=== PATIENT | male | born 1935 | race Caucasian/White ===

== ENCOUNTER 2016-11-09 10:20 | Emergency (ER) | payer MEDICARE, BC ==
[2016-11-09] MEDS ORDERED: ACETAMINOPHEN 325 MG TABLET PO STA (12:09)
[2016-11-09] MEDS ORDERED: ACETAMINOPHEN 325 MG TABLET PO ONE (12:12)
== END 2016-11-09 13:11 | disposition home or self-care (01) ==
DX: S61.012A Laceration without foreign body of left thumb without damage to nail, initial encounter (principal); S61.412A Laceration without foreign body of left hand, initial encounter; V48.0XXA Car driver injured in noncollision transport accident in nontraffic accident, initial encounter; Y92.414 Local residential or business street as the place of occurrence of the external cause; I10 Essential (primary) hypertension
CPT/HCPCS: 12002; 73140; 99283; A9270

== ENCOUNTER 2017-03-30 15:29 | Outpatient (CLI) | payer MEDICARE, BC ==
[2017-03-30] MEDS ORDERED: GADOBUTROL 7.5 MMOL/7.5 ML VIAL IVP ONE (17:59)
--- NOTE | 2017-03-30 18:40 | MRI Preliminary Report ---
Exam: MRI Shoulder LT W/O IMPRESSION: 1. Moderate osteoarthritis of the acromioclavicular joint with a joint effusion. 2. Tendinosis of supraspinatus and infraspinatus. 3. High-grade partial-thickness tear of the deep fibers of subscapularis, with mild atrophy. 4. Complete rupture of the long head of biceps with medial subluxation 5. 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 [facility] MUSCULOSKELETAL RADIOLOGY SECTION The call report notification system was initiated by Dr. Barney Raymond at 18:27 hrs on 03/30/17 . The above findings were discussed with provider Estiven by Dr. Barney Raymond at 18:38 hrs on . SITE ID: [id number]
--- NOTE | 2017-03-30 18:43 | MRI Preliminary Report ---
Exam: MRI Brain W/WO IMPRESSION: 1. No evidence of acute or subacute infarct, intracranial hemorrhage, mass, midline shift, hydrocepha stephy, or abnormal intracranial enhancement. 2. Moderate scattered T2/FLAIR hyperintense periventricular, deep, and subcortical white matter lesio ns within cerebral hemispheres bilaterally. 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 3. 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 [facility] The call report notification system was initiated by Dr. Rachael Reynolds at 18:37 hrs on 03/30/17. The above findings were discussed with provider Magi by Dr. Rachael Reynolds at 18:42 hrs on . SITE ID: [id number]
--- NOTE | 2017-03-30 18:46 | MRI Report ---
EXAM: MRI BRAIN WITHOUT AND WITH CONTRAST EXAM DATE: 03/30/2017 05:30 PM. CLINICAL HISTORY: FACIAL DROOP,L CHOKING, CANNOT LIFT L ARM. COMPARISON: MRI brain 07/15/2016 TECHNIQUE: Multiplanar, multisequence T1-weighted and fluid-sensitive MR sequences of the brain were performed. Sequences optimized for routine evaluation. Other: None. Without and with IV Contrast: Yes . 7.5 mL Gadavist FINDINGS: Brain Volume: Normal for age. Parenchyma/Dura: Again noted is a chronic infarct in the right posterior inferior cerebellar hemisphe re as evidenced by cystic encephalomalacia with surrounding gliosis. No masses, acute or subacute inf arcts, or hemorrhage. Moderate scattered T2/FLAIR hyperintense periventricular, deep, and subcortical white matter lesions within cerebral hemispheres bilaterally. No parenchymal microhemorrhages. No ab normal intracranial enhancement. Ventricles/Cisterns: Normal. No hydrocephalus. Sinuses: Mild mucosal thickening right maxillary sinus. The remaining paranasal sinuses are clear. Bones: Normal. Other: None. IMPRESSION: 1. No evidence of acute or subacute infarct, intracranial hemorrhage, mass, midline shift, hydrocepha stephy, or abnormal intracranial enhancement. 2. Moderate scattered T2/FLAIR hyperintense periventricular, deep, and subcortical white matter lesio ns within cerebral hemispheres bilaterally. 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 3. 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 [facility] The call report notification system was initiated by Dr. Rachael Reynolds at 18:37 hrs on 03/30/17. The above findings were discussed with provider Sow by Dr. Rachael Reynolds at 18:42 hrs on . Referring Provider Line: [phone] SITE ID: [id number]
--- NOTE | 2017-03-30 19:12 | MRI Report ---
EXAM: LEFT SHOULDER MRI WITHOUT CONTRAST EXAM DATE: 03/30/2017 05:18 PM. CLINICAL HISTORY: Facial droop, choking, unable to lift left arm. COMPARISON: None. TECHNIQUE: Multiplanar, multisequence T1-weighted and fluid-sensitive sequences of the shoulder witho ut contrast. Other: None. FINDINGS: Acromioclavicular Region: The acromion is type III. There is an acromioclavicular joint effusion with moderate osteoarthritis. There are inferiorly projecting osteophytes narrowing the subacromial space . There is a small bursal effusion. Glenohumeral Region: There is moderate thinning of the hyaline cartilage of the glenohumeral joint wi th subarticular sclerosis and cyst formation consistent with moderate osteoarthritis. There is superi or subluxation of the humeral head. Humeral head and glenoid osteophytes are noted. Bone Marrow: See above Labrum: There is generalized labral fraying consistent with osteoarthritis. Musculature/Rotator Cuff: There is marked thickening and moderately increased T1 and T2 signal in the supraspinatus tendon consistent with tendinosis. There are similar changes in the anterior fibers of infraspinatus. There is tendinosis and high-grade partial-thickness tearing of subscapularis mainly affecting the deep fibers. There is mild atrophy of subscapularis. Biceps Tendon: There is a complete rupture of the long head of biceps at its proximal attachment. The fibers are medially subluxed. Other: The subcutaneous tissues are unremarkable. IMPRESSION: 1. Moderate osteoarthritis of the acromioclavicular joint with a joint effusion. 2. Tendinosis of supraspinatus and infraspinatus. 3. High-grade partial-thickness tear of the deep fibers of subscapularis, with mild atrophy. 4. Complete rupture of the long head of biceps with medial subluxation. 5. 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 [facility] MUSCULOSKELETAL RADIOLOGY SECTION The call report notification system was initiated by Dr. Barney Raymond at 18:27 hrs on 03/30/17 . The above findings were discussed with provider Jean-Baptiste by Dr. Barney Raymond at 18:38 hrs on . Referring Provider Line: [phone] SITE ID: [id number]
== END 2017-03-30 15:30 | disposition home or self-care (01) ==
LOC: DI 15:29
PROVIDERS: ATTEND Nurse Practitioner Family
DX: I63.8 Other cerebral infarction (principal); M19.012 Primary osteoarthritis, left shoulder; S46.012A Strain of muscle(s) and tendon(s) of the rotator cuff of left shoulder, initial encounter; S46.112A Strain of muscle, fascia and tendon of long head of biceps, left arm, initial encounter
CPT/HCPCS: 70553; 73221; A9585

== ENCOUNTER 2017-05-28 11:52 | Emergency (ER) | payer MEDICARE, BC ==
[2017-05-28 11:59] VITALS: BP 130/78
[2017-05-28 13:10] LABS: BILIRUBIN,URINE NEGATIVE (NEGATIVE)
[2017-05-28 13:17] LABS: UA w/ MICROSCOPIC CHARGE YES; UR CULTURE IF IND INDICATED
[2017-05-28 13:18] LABS: WBC,URINE >25 /HPF (0-3)
[2017-05-28] MEDS ORDERED: CIPROFLOXACIN 250 MG TABLET PO STA (13:58)
--- NOTE | 2017-05-28 13:59 | ED Physician Documentation ---
History of Present Illness - Stated complaint Stated Complaint: MALE - Chief complaint Chief Complaint: General - History obtained from History obtained from: Patient - History of Present Illness Timing: Other (82-year-old gentleman with urinary frequency and gross hematuria since yesterday. He also has dysuria but no flank pain. No personal History of renal colic or prostate issues.) Review of Systems Constitutional: denies: Fever, Chills GI: denies: Abdominal Pain, Nausea, Vomiting : reports: Dysuria, Frequency PD PAST MEDICAL HISTORY - Past Medical History Cardiovascular: Hypertension - Past Surgical History Past Surgical History: Yes General: Appendectomy - Present Medications Home Medications: Ambulatory Orders Medication Instructions Recorded Confirmed Aspirin [Aspir 81] 81 mg PO DAILY 09/24/15 05/28/17 Sertraline HCl [Zoloft] 50 mg PO DAILY 09/24/15 05/28/17 Atorvastatin [Lipitor] 10 mg PO DAILY 05/28/17 05/28/17 Ciprofloxacin HCl [Cipro] 500 mg PO BID #14 tablet 05/28/17 Lisinopril [Zestril] 5 mg PO DAILY 05/28/17 05/28/17 - Allergies Allergies/Adverse Reactions: Allergies Allergy/AdvReac Type Severity Reaction Status Date / Time No Known Drug Allergies Allergy Verified 11/09/16 10:27 - Social History Does the pt smoke?: No Smoking Status: Never smoker Does the pt drink ETOH?: No Does the pt have substance abuse?: No - Immunizations Immunizations are current?: Yes - POLST Patient has POLST: No PD ED PE NORMAL - Vitals Vital signs reviewed: Yes - General General: Alert and oriented X 3, No acute distress - Abdomen Abdomen: Soft, Non tender - Rectal Rectal: Other (prostate NTTP) - Back Back: No CVA TTP, No spinal TTP - Neuro Neuro: Alert and oriented X 3, Normal speech - Psych Psych: Normal mood, Normal affect Results - Vitals Vitals: Vital Signs - 24 hr 05/28/17 11:56 Temperature 36.4 C L Heart Rate 72 Respiratory 18 Rate Blood Pressure 130/78 O2 Saturation 96 Oxygen O2 Source Room air - Labs Labs: Laboratory Tests 05/28/17 12:20 Urine Color BROWN Urine Clarity BLOODY Urine pH 6.0 Ur Specific [place] >=1.030 H Urine Protein >=300 Urine Glucose (UA) NEGATIVE Urine Ketones NEGATIVE Urine Occult Blood LARGE H Urine Nitrite POSITIVE H Urine Bilirubin NEGATIVE Urine Urobilinogen 1 (NORMAL) Ur Leukocyte Esterase TRACE H Urine RBC TNTC H Urine WBC >25 H Ur Squamous Epith Cells RARE Squamous Urine Bacteria Many H Ur Microscopic Review INDICATED Urine Culture Comments INDICATED Departure - Departure Disposition: 01 Home, Self Care Clinical Impression: Cystitis Condition: Good Record reviewed to determine appropriate education?: Yes Instructions: ED UTI Cystitis Male Prescriptions: Ciprofloxacin HCl [Cipro] 500 mg PO BID #14 tablet Comments: Call your doctor to arrange a follow-up appointment, make the next available appointment. In the interim, return anytime if worse or if new symptoms develop. We will culture your urine, the results should be done in 48-72 hours. If an antibiotic change is necessary we will call you. Return if worse in the meantime, especially if you develop increasing flank pain, fevers, or cannot keep down the medication.
[2017-05-28] MEDS ORDERED: CIPROFLOXACIN 250 MG TABLET PO ONE (14:07)
== END 2017-05-28 14:37 | disposition home or self-care (01) ==
LOC: ED 11:52
DX: N30.00 Acute cystitis without hematuria (principal); Z79.82 Long term (current) use of aspirin
CPT/HCPCS: 51798; 81001; 87086; 99283; A9270; 81003

== ENCOUNTER 2017-09-09 13:47 | Outpatient (CLI) | payer MEDICARE, BC ==
--- NOTE | 2017-09-09 22:12 | MRI Report ---
EXAM: MRI LUMBAR SPINE WITHOUT CONTRAST EXAM DATE: 09/09/2017 02:34 PM. CLINICAL HISTORY: Leg pain with prolonged standing or walking. Rule out spinal stenosis. COMPARISON: None. TECHNIQUE: Multiplanar, multisequence T1-weighted and fluid-sensitive sequences of the lumbar spine f rom T12 to S1 without contrast. Other: None. FINDINGS: There is straightening of the normal lumbar lordosis. The anterior to posterior dimension of the lumb ar spinal canal is less than 15 mm consistent with a congenital stenosis. There is a mild degree of e pidural lipomatosis of the posterior epidural space from L1-L2 through L3-L4. There are multiple disk bulges or disk osteophyte complexes, which will be described in greater detai l below. There are Schmorl's nodes within the endplates from L1-L2 through L5-S1. There is a grade 1 anterolis thesis of L4 on L5. There are multiple disk bulges or disk osteophyte complexes, which will be descri bed in greater detail below. There is a mixture Modic type I and type II endplate degenerative change within the L1-L2 through L4-L5 endplates. There is minimal atrophy of the paraspinal musculature and psoas musculature. The abdominal aorta is of normal caliber. The kidneys are without evidence of hydronephrosis, but there is a large renal cyst of the interpolar region of the left kidney only partially in the provided field of view. Axial images: L1-L2: There is a small disk osteophyte complex abutting the sac producing a moderate central canal s tenosis. There is moderate bilateral facet arthropathy. There is moderate right and tcek-pa-[id number] left neural foraminal narrowing. L2-L3: There is a broad-based disk osteophyte complex with a right paracentral extrusion of the disk producing a severe central canal stenosis with probable entrapment of the traversing right L3 nerve r oot. Recommend correlation for right L3 radiculopathy. There is mild left and [id number]-[id number] right facet arthropathy. There is moderate right and mild to moderate left foraminal stenosis. L3-L4: There is a small disk osteophyte complex abutting the sac. There is mild hypertrophy of the fa t in the posterior epidural space. There is a moderate central canal stenosis. There is a mild degree of bilateral facet arthropathy. There is mild to moderate right and moderate left neural foraminal n arrowing. L4-L5: There is a grade 1 anterolisthesis of L4 on L5. There is a small disk osteophyte complex abutt ing the sac. There is a moderate central canal stenosis. There is moderate to severe bilateral facet arthropathy. There is mild to moderate right and moderate left neural foraminal narrowing. There is a small left-sided synovial cyst. L5-S1: There is a small disk osteophyte complex abutting the sac producing a minimal central canal st enosis. There is mild to moderate left facet arthropathy. There is mild right and left neural foramin al narrowing. IMPRESSION: 1. There is a small disk osteophyte complex abutting the sac producing a moderate central canal steno sis at L1-L2. 2. There is a broad-based disk osteophyte complex and L2-L3 with a superimposed right paracentral ext rusion of the disk producing a severe central canal stenosis with probable entrapment of the traversi ng right L3 nerve root. Recommend correlation for right L3 radiculopathy. 3. There is a small disk osteophyte complex at L3-L4 producing a moderate central canal stenosis in c ombination with mild epidural lipomatosis. 4. 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 5. There is a small disk is abutting the sac at L4-L5. There is a moderate central canal stenosis. Th ere is moderate to severe bilateral facet arthropathy. 6. There is a small disk osteophyte complex at L5-S1 producing a minimal central canal stenosis. Comment: The following findings are so common in adults without low back pain that while we report th eir presence, they must be interpreted with caution and in the context of the clinical situation. (Re lizzy Covington et al, Spine 2001) Prevalence of findings in patients without low back pain: Disk degeneration (any evidence): 92% Disk desiccation/T2 signal loss: 83% Disk height loss: 56% Disk bulge: 64% Disk protrusion: 32% Annular tear/high intensity zone: 38% [facility] Referring Provider Line: [phone] SITE ID: [id number]
== END 2017-09-09 13:48 | disposition home or self-care (01) ==
LOC: DI 13:47
PROVIDERS: ATTEND Nurse Practitioner
DX: M51.26 Other intervertebral disc displacement, lumbar region (principal); M51.36 Other intervertebral disc degeneration, lumbar region; M47.896 Other spondylosis, lumbar region; M43.16 Spondylolisthesis, lumbar region; M51.46 Schmorl's nodes, lumbar region
CPT/HCPCS: 72148

== ENCOUNTER 2019-02-09 16:08 | Outpatient (CLI) | payer MEDICARE, BC | END 2019-02-09 16:09 | disposition critical access hospital (66) | LOC: EMS 16:08 | PROVIDERS: ATTEND Surgery | DX: R07.81 Pleurodynia (principal); M54.5 Low back pain; W17.81XA Fall down embankment (hill), initial encounter; Y92.89 Other specified places as the place of occurrence of the external cause | CPT/HCPCS: A0425; A0427 ==

== ENCOUNTER 2019-02-09 16:34 | Emergency (ER) | payer MEDICARE, BC ==
[2019-02-09] MEDS ORDERED: SODIUM CHLORIDE 0.9% 1,000 ML IV ONE (16:43)
--- NOTE | 2019-02-09 16:45 | ED Physician Documentation ---
PD HPI MAJOR TRAUMA - Stated complaint Stated Complaint: FALL - Chief complaint Chief Complaint: Trauma Hd/Nk - History obtained from History obtained from: Patient - History of Present Illness Mechanism of injury: Fell (This is a relatively healthy 83-year-old gentleman who was sitting in a chair outside on a slope in the chair went over backwards and hit his head and back. He had severe back pain although he has hard time localizing it. He is not ambulated since the accident. Prior to arrival he received 150 mcg of fentanyl per EMS and declines further pain medication at this juncture. He had no loss of consciousness.) Review of Systems Ten Systems: 10 systems reviewed and negative Constitutional: reports: Reviewed and negative Cardiac: reports: Reviewed and negative Respiratory: reports: Reviewed and negative PD PAST MEDICAL HISTORY - Past Medical History Cardiovascular: Hypertension - Past Surgical History Past Surgical History: Yes General: Appendectomy - Present Medications Home Medications: Ambulatory Orders Medication Instructions Recorded Confirmed Aspirin [Aspir 81] 81 mg PO DAILY 09/24/15 05/28/17 Sertraline HCl [Zoloft] 50 mg PO DAILY 09/24/15 05/28/17 Atorvastatin [Lipitor] 10 mg PO DAILY 05/28/17 05/28/17 Ciprofloxacin HCl [Cipro] 500 mg PO BID #14 tablet 05/28/17 Lisinopril [Zestril] 5 mg PO DAILY 05/28/17 05/28/17 - Allergies Allergies/Adverse Reactions: Allergies Allergy/AdvReac Type Severity Reaction Status Date / Time No Known Drug Allergies Allergy Verified 11/09/16 10:27 - Social History Does the pt smoke?: No Smoking Status: Never smoker Does the pt drink ETOH?: No Does the pt have substance abuse?: No - Immunizations Immunizations are current?: Yes - POLST Patient has POLST: No PD ED PE NORMAL - Vitals Vital signs reviewed: Yes - General General: Alert and oriented X 3, No acute distress - HEENT HEENT: Other (Right pupil is smaller than the left, he is not aware of any pre- existing anisocoria but says he has been having trouble with his vision for a while.) - Neck Neck: Supple, no meningeal sign, No bony TTP - Cardiac Cardiac: RRR, No murmur - Respiratory Respiratory: No respiratory distress, Clear bilaterally - Abdomen Abdomen: Normal bowel sounds, Soft, Non tender - Back Back: No spinal TTP - Extremities Extremities: No deformity, No tenderness to palpate, No calf tenderness / cord - Neuro Neuro: Alert and oriented X 3, Normal speech - Psych Psych: Normal mood, Normal affect Results - Vitals Vitals: Vital Signs - 24 hr 02/09/19 02/09/19 16:39 19:03 Temperature 36.6 C Heart Rate 73 Respiratory 12 Rate Blood Pressure 162/98 H O2 Saturation 91 L Oxygen O2 Source Room air - Labs Labs: Laboratory Tests 02/09/19 02/09/19 02/09/19 18:47 18:47 18:47 WBC 10.0 RBC 4.28 L Hgb 14.0 Hct 41.8 L MCV 97.5 H MCH 32.7 H MCHC 33.5 RDW 13.4 Plt Count 163 MPV 7.8 Neut # (Auto) 6.4 Lymph # (Auto) 2.9 [place] # (Auto) 0.6 Eos # (Auto) 0.1 Baso # (Auto) 0.0 Absolute Nucleated RBC 0.01 Nucleated RBC % 0.1 PT 12.4 INR 1.1 Sodium 141 Potassium 3.8 Chloride 104 Carbon Dioxide 25 Anion Gap 12.0 BUN 20 Creatinine 0.7 Estimated GFR (MDRD) 108 Glucose 99 Calcium 9.0 Total Bilirubin 0.8 AST 23 ALT 25 Alkaline Phosphatase 71 Total Protein 7.0 Albumin 4.0 Globulin 3.0 Albumin/Globulin Ratio 1.3 Lipase 33 - Rads (name of study) CT Chest Radiology: EMP read contemporaneously (Nondisplaced fifth sixth and eighth rib fracture with 1/7 rib fracture that is displaced in [address] Head/C/T/L Spine Radiology: EMP read contemporaneously (Old right cerebellar infarct; degenerative changes in the neck causing spinal stenosis; Degenerative changes in the lumbar spine without spinal fractures.) PD MEDICAL DECISION MAKING - ED course ED course: This is an 83-year-old gentleman who presents by ambulance with severe left back pain after a fall, CT imaging of the spine, head, and chest demonstrate 4 rib fractures, 1 of which is displaced and fractured in 2 places. Arrangement was made to go to [facility] for higher level of trauma care given advanced age and multiple rib fractures and he was accepted there by Dr. Enma Alves at 7:05 PM. Cobras were completed. He is stable for transport to a higher level of care by ground. Departure - Departure Disposition: 02 Transfer Acute Care Hosp Clinical Impression: Multiple rib fractures Qualifiers: Encounter type: initial encounter Fracture type: closed Laterality: left Qualified Code(s): S22.42XA - Multiple fractures of ribs, left side, initial encounter for closed fracture Flail chest Qualifiers: Encounter type: initial encounter Fracture type: closed Qualified Code(s): S22.5XXA - Flail chest, initial encounter for closed fracture Condition: Stable
--- NOTE | 2019-02-09 17:46 | CT Report ---
Reason: L rib pain, fall Procedure Date: 02/09/2019 Accession Number: [id number] / [id number] Procedure: CT - CHEST WO CPT Code: FULL RESULT: EXAM: CT CHEST WITHOUT CONTRAST. EXAM DATE: 02/09/2019 05:25 PM. CLINICAL HISTORY: Fall, left rib pain. COMPARISONS: None. TECHNIQUE: Routine helical CT imaging was performed through the chest. IV contrast: None. Reconstructions: Coronal and sagittal. In accordance with CT protocol optimization, one or more of the following dose reduction techniques were utilized for this exam: automated exposure control, adjustment of mA and/or KV based on patient size, or use of iterative reconstructive technique. FINDINGS: Lungs/Pleura: Hypoventilatory opacities at the lung bases. No suspicious lung nodules or confluent consolidation. No pleural effusion or pneumothorax. Mediastinum: Normal heart size. No pericardial effusion. There are aortic and coronary artery calcifications. No aortic aneurysm. Bones: Nondisplaced posterior fifth and sixth rib fractures. The left posterior seventh rib is fractured in 2 places. There is also a minimally displaced eighth rib fracture. Visualized Abdomen: 6.6 cm left renal cyst. There are several hypodensities scattered throughout the liver most likely representing cyst. Other: None. IMPRESSION: 1. No acute pulmonary process. 2. Nondisplaced fifth, sixth and eighth rib fractures. The seventh rib is slightly displaced and fractured at 2 points. [facility]
--- NOTE | 2019-02-09 18:36 | CT Report ---
Reason: fall, head/back inj Procedure Date: 02/09/2019 Accession Number: [id number] / [id number] Procedure: CT - CERVICAL SPINE WO CPT Code: FULL RESULT: EXAM: CT CERVICAL SPINE WITHOUT CONTRAST DATE: 02/09/2019 05:25 PM. HISTORY: Fall, head/back injury. COMPARISONS: HEAD W/O 02/09/2019 5:10 PM. TECHNIQUE: Thin-section axial images were acquired of the cervical spine without contrast. Post-processing: Coronal and sagittal reformats. Other: None. In accordance with CT protocol optimization, one or more of the following dose reduction techniques were utilized for this exam: automated exposure control, adjustment of mA and/or KV based on patient size, or use of iterative reconstructive technique. FINDINGS: Alignment: No scoliosis or spondylolisthesis. Bones: No fractures. There is an odontoid process cyst. Interspace Levels/Facets: C1-C2: Unremarkable. C2-C3: Disk and facet joint related degenerative changes resulting in mild left neural foraminal stenosis. C3-C4: Degenerative bulging disk osteophyte complex and facet joint arthropathy resulting in moderate bilateral neural foraminal stenosis. C4-C5: There is 3 mm of C4 on C5 anterolisthesis. Degenerative bulging disk osteophyte complex and facet joint arthropathy resulting in moderate right and mild left neural foraminal stenosis. C5-C6: Degenerative bulging disk osteophyte complex resulting in moderate bilateral neural foraminal stenosis. C6-C7: Degenerative bulging disk osteophyte complex resulting in moderate bilateral neural foraminal stenosis. C7-T1: 4 mm of C7 on T1 anterolisthesis. There is degenerative disk bulging with associated moderate bilateral neural foraminal stenosis and mild central canal stenosis. Musculature: Normal. No fatty atrophy. Other: The paravertebral and prevertebral soft tissues are unremarkable. The lung apices are clear. IMPRESSION: 1. No cervical spine fracture. 2. Diffuse disk and facet joint related degenerative changes resulting in variable degrees of neural foraminal stenosis from C3-T1 as detailed above. [facility]
--- NOTE | 2019-02-09 18:53 | CT Report ---
Reason: fall, head/back inj Procedure Date: 02/09/2019 Accession Number: [id number] / [id number] Procedure: CT - HEAD WO CPT Code: FULL RESULT: EXAM: CT HEAD EXAM DATE: 02/09/2019 05:25 PM. CLINICAL HISTORY: Fall, head/back injury. COMPARISON: BRAIN W/WO 03/30/2017 5:30 PM. TECHNIQUE: Multiaxial CT images were obtained from the foramen magnum to the vertex. Reformats: Sagittal and coronal. IV contrast: None. In accordance with CT protocol optimization, one or more of the following dose reduction techniques were utilized for this exam: automated exposure control, adjustment of mA and/or KV based on patient size, or use of iterative reconstructive technique. FINDINGS: Parenchyma: No acute infarction or hemorrhage. Chronic inferior right cerebellar hemisphere encephalomalacia. Extraaxial Spaces: Normal for age. No subdural or epidural collections identified. Ventricles: Normal in size and position. Sinuses and Orbits: Imaged paranasal sinuses, orbits, and mastoids show no significant abnormality. Bones: No evidence of fracture or calvarial defect. Other: None. IMPRESSION: 1. No acute intracranial abnormality. 2. Chronic right inferior cerebellar infarction. [facility]
[2019-02-09 18:54] LABS: BASOPHILS % (AUTO) 0.2 %; EOSINOPHILS # (AUTO) 0.1 10^3/uL (0.0-0.7); EOSINOPHILS % (AUTO) 0.7 %; LYMPHOCYTES # (AUTO) 2.9 10^3/uL (1.5-3.5); LYMPHOCYTES % (AUTO) 28.7 %; MEAN CORPUSCULAR HEMOGLOBIN 32.7 pg (27.0-31.0); MEAN CORPUSCULAR HGB CONC 33.5 g/dL (32.0-36.0); MEAN CORPUSCULAR VOLUME 97.5 fL (80.0-94.0); MEAN PLATELET VOLUME 7.8 fL (7.4-11.4); MONOCYTES # (AUTO) 0.6 10^3/uL (0.0-1.0); MONOCYTES % (AUTO) 5.8 %; NEUTROPHILS # (AUTO) 6.4 10^3/uL (1.5-6.6); NEUTROPHILS % (AUTO) 64.6 %; PLT - PLATELET COUNT 163 10^3/uL (130-450); RED BLOOD COUNT 4.28 10^6/uL (4.70-6.10); RED CELL DISTRIBUTION WIDTH 13.4 % (12.0-15.0)
[2019-02-09 18:58] LABS: INR 1.1 (0.8-1.2); PT - PROTHROMBIN TIME 12.4 secs (9.9-12.6)
--- NOTE | 2019-02-09 18:58 | CT Report ---
Reason: fall, head/back inj Procedure Date: 02/09/2019 Accession Number: [id number] / [id number] Procedure: CT - LUMBAR SPINE WO CPT Code: FULL RESULT: EXAM: CT LUMBAR SPINE WITHOUT CONTRAST EXAM DATE: 02/09/2019 05:25 PM. CLINICAL HISTORY: Fall, head/back injury. COMPARISONS: None. TECHNIQUE: Thin-section axial images were acquired of the lumbar spine from T12 to S1 without contrast. Post-processing: Coronal and sagittal reformats. Other: None. In accordance with CT protocol optimization, one or more of the following dose reduction techniques were utilized for this exam: automated exposure control, adjustment of mA and/or KV based on patient size, or use of iterative reconstructive technique. FINDINGS: Alignment: No scoliosis or spondylolisthesis. Bones: Five [id number]-[id number] lumbar vertebral bodies are present. No fractures or bone lesions. Disk Levels/Facets: T12-L1: Unremarkable. L1-L2: Degenerative disk bulging with ligamentum flavum hypertrophy resulting in mild central canal and bilateral neural foraminal stenosis. L2-L3: Degenerative disk bulging and ligamentum flavum hypertrophy resulting in mild bilateral neural foraminal and central canal stenosis. L3-L4: Degenerative disk bulging and ligamentum flavum hypertrophy resulting in mild bilateral neural foraminal and central canal stenosis. L4-L5: There is 2 mm of L4 on L5 anterolisthesis. Degenerative disk bulging and facet joint arthropathy resulting in mild bilateral neural foraminal and central canal stenosis. L5-S1: Circumferential bulging disk resulting in mild bilateral neural foraminal narrowing left greater than right. Musculature: Normal. No fatty atrophy. Other: The visualized retroperitoneum is unremarkable. IMPRESSION: 1. No lumbar spine fracture. 2. Diffuse disk and facet joint related degenerative changes with ligamentum flavum hypertrophy resulting in mild neural foraminal and central canal narrowing as above. RADIA
--- NOTE | 2019-02-09 19:00 | CT Report ---
Reason: fall, head/back inj Procedure Date: 02/09/2019 Accession Number: [id number] / [id number] Procedure: CT - THORACIC SPINE WO CPT Code: FULL RESULT: EXAM: CT THORACIC SPINE WITHOUT CONTRAST EXAM DATE: 02/09/2019 05:25 PM. CLINICAL HISTORY: Fall, head/back injury. COMPARISONS: None. TECHNIQUE: Thin-section axial images were acquired of the thoracic spine from C7 to L1 without contrast. Post-processing: Coronal and sagittal reformats. Other: None. In accordance with CT protocol optimization, one or more of the following dose reduction techniques were utilized for this exam: automated exposure control, adjustment of mA and/or KV based on patient size, or use of iterative reconstructive technique. FINDINGS: Alignment: Right convexity midthoracic scoliosis. No spondylolisthesis. Bones: No fracture or bone lesion. Disk Levels/Facets: Diffuse age-related degenerative endplate spurring. Musculature: Normal. No fatty atrophy. Other: Left posterior fifth through eighth rib fractures. IMPRESSION: 1. No thoracic spine fracture. 2. Left fifth through eighth rib fractures. Please refer to chest CT report. RADIA
[2019-02-09 19:06] LABS: ALBUMIN/GLOBULIN RATIO 1.3 (1.0-2.2); BILIRUBIN,TOTAL 0.8 mg/dL (0.2-1.0); CREATININE 0.7 mg/dL (0.6-1.2)
[2019-02-09 19:45] VITALS: BP 192/100
== END 2019-02-09 20:37 | disposition short-term general hospital (02) ==
LOC: EDUNIT# → ED 16:34
DX: S22.42XA Multiple fractures of ribs, left side, initial encounter for closed fracture (principal); W07.XXXA Fall from chair, initial encounter; M54.9 Dorsalgia, unspecified; I10 Essential (primary) hypertension
CPT/HCPCS: 36415; 70450; 71250; 72125; 72128; 72131; 80053; 83690; 85025; 85610; 96360; 96361; 99283; 99284

== ENCOUNTER 2019-02-09 20:36 | Outpatient (CLI) | payer MEDICARE, BC | END 2019-02-09 20:37 | disposition short-term general hospital (02) | LOC: EMS 20:36 | PROVIDERS: ATTEND Surgery | DX: S22.49XA Multiple fractures of ribs, unspecified side, initial encounter for closed fracture (principal); W17.81XA Fall down embankment (hill), initial encounter | CPT/HCPCS: A0425; A0426 ==

== ENCOUNTER 2019-03-31 16:15 | Outpatient (CLI) | payer MEDICARE, BC ==
--- NOTE | 2019-04-01 11:52 | DEXA Report ---
Reason: OTHER SPECIFIED DISORDER OF BONE DENSITY AND STRUCTURE Procedure Date: 03/31/2019 Accession Number: [id number] / [id number] Procedure: DEX - Dexa Spine and/or Hip CPT Code: FULL RESULT: EXAM: Dexa Spine and/or Hip DATE: 03/31/2019 4:47 PM CLINICAL HISTORY: OTHER SPECIFIED DISORDER OF BONE DENSITY AND STRUCTURE TECHNIQUE: Dual energy x-ray absorptiometry (DXA) was performed on a 5by System. Regions measured are the AP Spine, femoral neck, and if needed forearm. COMPARISON: None. In accordance with the International Society for Clinical Densitometry (ISCD) guidelines, data from previous exams may be reanalyzed using current recommendations and techniques. This is done to allow a more accurate basis for comparison with the current study. FINDINGS: The data for the lumbar spine is as follows: BMD (g/cm/cm) T-SCORE Z-SCORE REGION L1 1.245 0.7 1.5 L2 1.442 1.7 2.4 L3 1.493 2.1 2.9 L4 1.393 1.3 2.0 TOTAL 1.398 1.5 2.2 NOTE: All evaluable vertebrae are used for classification The data for the hip is as follows: BMD (g/cm/cm) T-SCORE Z-SCORE REGION Neck 0.748 -2.5 -0.8 TOTAL 0.789 -2.2 -0.9 NOTE: The femoral neck or total proximal femur, whichever is lowest, is used for classification. IMPRESSION: THE WHO CLASSIFICATION BASED ON THE INTERNATIONAL REFERENCE STANDARD IS OSTEOPOROSIS. THE FRACTURE RISK IS HIGH. RECOMMENDATION: Patients with diagnosis of osteoporosis or osteopenia should have regular bone mineral density assessment. For those eligible for Medicare, routine testing is allowed once every 2 years. Testing frequency can be increased for patients who have rapidly progressing disease or for those who are receiving medical therapy to restore bone mass. COMMENT: World Health Organization (WHO) definitions for osteoporosis and osteopenia: NORMAL BMD: T-score at -1.0 or higher, fracture risk is low OSTEOPENIA BMD: T-score between -1.0 and -2.5, fracture risk is increased. OSTEOPOROSIS BMD: T-score at -2.5 or lower, fracture risk is high. National Osteoporosis Foundation recommends: 1. Obtain adequate dietary calcium (at least 1200 mg per day) and vitamin D (400-800 international units per day). 2. Participate, as appropriate, in regular weightbearing and muscle-strengthening exercise. 3. Avoid tobacco use and reduce alcohol and caffeine intake. 4. For more detailed information see the website at www.NOF.org.
== END 2019-03-31 16:16 | disposition home or self-care (01) ==
LOC: DI 16:15
PROVIDERS: ATTEND Registered Nurse
DX: M81.0 Age-related osteoporosis without current pathological fracture (principal)
CPT/HCPCS: 77080

== ENCOUNTER 2019-04-25 16:49 | Emergency (ER) | payer MEDICARE, BC ==
--- NOTE | 2019-04-25 17:44 | ED Physician Documentation ---
History of Present Illness - Stated complaint Stated Complaint: LUNG ISSUES - Chief complaint Chief Complaint: Neuro - History obtained from History obtained from: Patient, Family () - History of Present Illness Timing: Chronic (84-year-old gentleman who about 2-1/2 months ago had a fall with 4 rib fractures. I saw him at that time and sent him to [facility] where he spent about 2 weeks. He was managed nonoperatively. Subsequently spent a couple of weeks and assisted and has been home for a little over a month. For the last month or so he has had some exertional shortness of breath as well as dizzy episodes which he describes as lightheadedness where he asked to get down to the ground to keep passing out. He has had no syncopal episodes. Currently he denies shortness of breath. He went to the office today to discuss these complaints, and per his they were referred here because they did 2 EKGs and the EKG machine was "Minutizer.") Review of Systems Ten Systems: 10 systems reviewed and negative Constitutional: denies: Fever, Chills, Fatigue Throat: denies: Sore throat Cardiac: denies: Chest pain / pressure, Palpitations Respiratory: reports: Dyspnea. denies: Cough PD PAST MEDICAL HISTORY - Past Medical History Past Medical History: No Cardiovascular: Hypertension Respiratory: None Neuro: None Endocrine/Autoimmune: None GI: GERD : None HEENT: None Psych: None Musculoskeletal: None Derm: None - Past Surgical History Past Surgical History: Yes General: Appendectomy - Present Medications Home Medications: Ambulatory Orders Medication Instructions Recorded Confirmed Aspirin [Aspir 81] 81 mg PO DAILY 09/24/15 05/28/17 Sertraline HCl [Zoloft] 50 mg PO DAILY 09/24/15 05/28/17 Ciprofloxacin HCl [Cipro] 500 mg PO BID #14 tablet 05/28/17 RX: Atorvastatin [Lipitor] 10 mg PO DAILY 05/28/17 05/28/17 RX: Lisinopril [Zestril] 5 mg PO DAILY 05/28/17 05/28/17 - Allergies Allergies/Adverse Reactions: Allergies Allergy/AdvReac Type Severity Reaction Status Date / Time No Known Drug Allergies Allergy Verified 04/25/19 16:59 - Social History Does the pt smoke?: No Smoking Status: Never smoker Does the pt drink ETOH?: No Does the pt have substance abuse?: No - Immunizations Immunizations are current?: Yes - POLST Patient has POLST: No PD ED PE NORMAL - Vitals Vital signs reviewed: Yes - General General: Alert and oriented X 3, No acute distress - HEENT HEENT: PERRL, EOMI - Neck Neck: Supple, no meningeal sign, No bony TTP - Cardiac Cardiac: RRR, No murmur - Respiratory Respiratory: No respiratory distress, Other (mild diminished R base) - Abdomen Abdomen: Non tender - Back Back: No CVA TTP, No spinal TTP - Derm Derm: Normal color, Warm and dry - Extremities Extremities: No edema, No calf tenderness / cord - Neuro Neuro: Alert and oriented X 3, Normal speech Results - Vitals Vitals: Vital Signs - 24 hr 04/25/19 04/25/19 04/25/19 16:56 18:59 19:09 Temperature 36.7 C Heart Rate 70 66 64 Respiratory 18 18 17 Rate Blood Pressure 138/67 H 214/103 H 214/94 H O2 Saturation 100 95 93 Oxygen O2 Source Room air - EKG (time done) 1748 Rate: Rate (enter#) (63) Rhythm: NSR [place]: Normal Intervals: Prolonged NM QRS: Normal Ischemia: Non specific changes Computer interpretation: Agree with computer - Labs Labs: Laboratory Tests 04/25/19 04/25/19 04/25/19 17:46 17:46 17:46 WBC 8.5 RBC 3.84 L Hgb 12.6 L Hct 37.6 L MCV 97.9 H MCH 32.8 H MCHC 33.5 RDW 13.8 Plt Count 150 MPV 9.5 Neut # (Auto) 3.4 Lymph # (Auto) 4.4 H [place] # (Auto) 0.6 Eos # (Auto) 0.1 Baso # (Auto) 0.0 Absolute Nucleated RBC 0.00 Nucleated RBC % 0.0 D-Dimer Sodium 143 Potassium 3.6 Chloride 106 Carbon Dioxide 26 Anion Gap 11.0 BUN 21 H Creatinine 0.9 Estimated GFR (MDRD) 80 L Glucose 94 Calcium 9.2 Total Bilirubin 0.7 AST 20 ALT 22 Alkaline Phosphatase 83 Troponin I < 0.04 Total Protein 6.8 Albumin 4.0 Globulin 2.8 Albumin/Globulin Ratio 1.4 Lipase 32 04/25/19 17:46 WBC RBC Hgb Hct MCV MCH MCHC RDW Plt Count MPV Neut # (Auto) Lymph # (Auto) [place] # (Auto) Eos # (Auto) Baso # (Auto) Absolute Nucleated RBC Nucleated RBC % D-Dimer 219.7 Sodium Potassium Chloride Carbon Dioxide Anion Gap BUN Creatinine Estimated GFR (MDRD) Glucose Calcium Total Bilirubin AST ALT Alkaline Phosphatase Troponin I Total Protein Albumin Globulin Albumin/Globulin Ratio Lipase - Rads (name of study) 2v chest Radiology: EMP read contemporaneously (Mild bibasilar atelectasis or scarring) PD MEDICAL DECISION MAKING - ED course ED course: 84-year-old gentleman with some dyspnea and near syncopal episodes after a prolonged hospitalization. PE is considered but he is d-dimer was negative. And the remainder of his work-up was negative as well. His vital signs and exam are reassuring. Most likely cause is deconditioning from the hospitalization and and increased activity and consideration for physical therapy were advised. Departure - Departure Disposition: 01 Home, Self Care Clinical Impression: Pre-syncope, Physical deconditioning Condition: Good Record reviewed to determine appropriate education?: Yes Instructions: ED Near Syncope Unkn Comments: Your lab work and x-ray today look good. We checked for evidence of blood clots and heart disease and there was no evidence of either. I suspect your symptoms are due to a prolonged hospital stay and what is called deconditioning. Time and increasing physical activity will improve this. Talk with your doctor about physical therapy. Return for new worsening symptoms. Discharge Date/Time: 04/25/19 19:34
[2019-04-25 17:55] LABS: BASOPHILS % (AUTO) 0.4 %; EOSINOPHILS # (AUTO) 0.1 10^3/uL (0.0-0.7); EOSINOPHILS % (AUTO) 1.4 %; HGB - HEMOGLOBIN 12.6 g/dL (14.0-18.0); LYMPHOCYTES # (AUTO) 4.4 10^3/uL (1.5-3.5); LYMPHOCYTES % (AUTO) 50.9 %; MEAN CORPUSCULAR HEMOGLOBIN 32.8 pg (27.0-31.0); MEAN CORPUSCULAR HGB CONC 33.5 g/dL (32.0-36.0); MEAN CORPUSCULAR VOLUME 97.9 fL (80.0-94.0); MEAN PLATELET VOLUME 9.5 fL (7.4-11.4); MONOCYTES # (AUTO) 0.6 10^3/uL (0.0-1.0); MONOCYTES % (AUTO) 7.3 %; NEUTROPHILS # (AUTO) 3.4 10^3/uL (1.5-6.6); NEUTROPHILS % (AUTO) 39.8 %; PLT - PLATELET COUNT 150 10^3/uL (130-450); RED BLOOD COUNT 3.84 10^6/uL (4.70-6.10); RED CELL DISTRIBUTION WIDTH 13.8 % (12.0-15.0); WHITE BLOOD COUNT 8.5 x10^3/uL (4.8-10.8)
[2019-04-25 18:05] LABS: ALBUMIN/GLOBULIN RATIO 1.4 (1.0-2.2); BILIRUBIN,TOTAL 0.7 mg/dL (0.2-1.0); CALCIUM 9.2 mg/dL (8.5-10.3); CREATININE 0.9 mg/dL (0.6-1.2); TOTAL PROTEIN 6.8 g/dL (6.7-8.2)
--- NOTE | 2019-04-25 19:07 | XRAY Report ---
Reason: dyspnea Procedure Date: 04/25/2019 Accession Number: [id number] / [id number] Procedure: XR - Chest 2 View X-Ray CPT Code: 60460 FULL RESULT: EXAM: CHEST RADIOGRAPHY EXAM DATE: 04/25/2019 06:40 PM. CLINICAL HISTORY: Dyspnea. COMPARISON: CHEST W/O 02/09/2019 5:16 PM. TECHNIQUE: 2 views. FINDINGS: Lungs/Pleura: Mild chronic elevation of right hemidiaphragm. Streaky atelectasis versus scarring in posterior bases. No consolidation, effusion, or pneumothorax. Mediastinum: Mild cardiomegaly, unchanged. Upper lobe vessels not distended. Other: Osteopenia, scoliosis, multiple healing left rib fractures. IMPRESSION: Mild bibasilar atelectasis versus scarring. RADIA
[2019-04-25 19:10] VITALS: BP 214/94
== END 2019-04-25 19:34 | disposition home or self-care (01) ==
LOC: ED 16:49
DX: R55 Syncope and collapse (principal); I10 Essential (primary) hypertension
CPT/HCPCS: 71046; 80053; 83690; 84484; 85025; 85379; 93005; 99283; 99284

== ENCOUNTER 2019-04-28 06:44 | Day surgery (SDC) | payer MEDICARE, BC ==
[~2019-04-28 06:44] MED LIST: CYCLOPENTOLATE 1% OPHTH DROPS 2 ML ONE; KETOROLAC 0.45% OPHTH DROPS ONE; PHENYLEPHRINE 2.5% OPHTH 2 ML DROPS ONE; PROPARACAINE 0.5% OPHTH DROPS 15 ML ONE
[2019-04-28] MEDS ORDERED: LACTATED RINGERS 500 ML IV ONE (07:34)
[2019-04-28] MEDS ORDERED: BSS/LIDOCAINE/EPINEPHRINE 1 ML SYRINGE ONE (07:46)
[2019-04-28] MEDS ORDERED: TRIAMCIN/MOXIFLOX OPHTHALMIC 0.6 ML VIAL IO ONE ×2 (07:46→11:42)
[2019-04-28] MEDS ORDERED: TIMOLOL 0.5% OPHTH DROPS ONE (07:46)
[2019-04-28] MEDS ORDERED: BRIMONIDINE 0.2% OPHTH DROPS 5 ML ONE (07:46)
[2019-04-28] MEDS ORDERED: VANCOMYCIN OPHTHALMI 8MG/0.8ML 8 MG/0.8 ML SYRINGE IO ONE ×2 (07:46→11:42)
--- NOTE | 2019-04-28 08:49 | ANESTHESIA ---
Pre-Anesthesia VS, & Labs - Diagnosis left eye senile combined cataract - Procedure cataract extraction with intraocular lens implant left eye Vital Signs: Temp Pulse Resp BP Pulse Ox 36.2 C L 74 16 144/100 H 94 04/28/19 07:34 04/28/19 07:34 04/28/19 07:34 04/28/19 07:34 04/28/19 07:34 Height 5 ft 8 in Weight (kg) 80.9 kg Body Mass Index 26.1 - NPO >8 hours Home Medications and Allergies Home Medications: Ambulatory Orders Calcium Carbonate/Vitamin D3 [Calcium 600 + Vit D 400 Tablet] 1 each PO DAILY 04/27/19 Cyanocobalamin (Vitamin B-12) [Vitamin B-12] 1,000 mcg PO DAILY 04/27/19 Multivit-Min/FA/Lycopen/Lutein [Centrum Silver Men Tablet] 1 each PO DAILY 04/27/19 Tamsulosin HCl [Flomax] 0.4 mg PO DAILY 04/27/19 Aspirin [Aspir 81] 81 mg PO DAILY 09/24/15 Sertraline HCl [Zoloft] 50 mg PO DAILY 09/24/15 Atorvastatin [Lipitor] 10 mg PO DAILY 05/28/17 Calcium Carbonate/Vitamin D3 [Calcium 600 + Vit D 400 Tablet] 1 each PO DAILY 04/27/19 Cyanocobalamin (Vitamin B-12) [Vitamin B-12] 1,000 mcg PO DAILY 04/27/19 Multivit-Min/FA/Lycopen/Lutein [Centrum Silver Men Tablet] 1 each PO DAILY 04/27/19 Tamsulosin HCl [Flomax] 0.4 mg PO DAILY 04/27/19 Allergies/Adverse Reactions: Allergies Allergy/AdvReac Type Severity Reaction Status Date / Time No Known Drug Allergies Allergy Verified 04/25/19 16:59 Anes History & Medical History - Anesthetic History Anesthesia Complications: reports: No previous complications - Medical History Cardiovascular: reports: Hypertension Pulmonary: reports: None Gastrointestinal: reports: None Urinary: reports: None Neuro: reports: None Musculoskeletal: reports: Osteoarthritis, Gout, Chronic back pain Endocrine/Autoimmune: reports: None Blood Disorders: reports: None Skin: reports: None Smoking Status: Never smoker - Surgical History General: Appendectomy, Other (bilateral IHR) Exam General: Alert, Oriented x3, Cooperative, No acute distress Dental: Poor dentition Mouth Openin Fingerbreadth Neck Mobility: Normal Mallampati classification: II Thyromental Distance: greater than 6 cm Respiratory: Lungs clear, Normal breath sounds, No respiratory distress, No accessory muscle use Cardiovascular: Regular rate, Normal S1, Normal S2, No murmurs Mental/Cognitive Status: Alert/Oriented X3, Normal for patient Plan Anesthesia Type: MAC Consent for Procedure(s) Verified and Reviewed: Yes Code Status: Attempt Resuscitation ASA classification: 2-Mild systemic disease Is this case an emergency?: No
[2019-04-28] MEDS ORDERED: PHENYLEPHRINE 2.5% OPHTH 2 ML DROPS LEFTEYE ONE (09:25)
[2019-04-28] MEDS ORDERED: PROPARACAINE 0.5% OPHTH DROPS 15 ML LEFTEYE ONE (09:25)
[2019-04-28] MEDS ORDERED: CYCLOPENTOLATE 1% OPHTH DROPS 2 ML LEFTEYE ONE (09:25)
[2019-04-28] MEDS ORDERED: KETOROLAC 0.45% OPHTH DROPS LEFTEYE ONE (09:25)
[2019-04-28] MEDS ORDERED: fentaNYL 100 MCG/2 ML VIAL IVP ONE (11:00)
[2019-04-28] MEDS ORDERED: MIDAZOLAM 2 MG/2 ML VIAL IVP ONE (11:00)
[2019-04-28] MEDS ORDERED: EPINEPHrine 1 MG/ML AMP IVP ONE (11:41)
[2019-04-28] MEDS ORDERED: CHONDR SULF/HYALURONATE SYRINGE IO ONE (11:41)
[2019-04-28] MEDS ORDERED: BRIMONIDINE 0.2% OPHTH DROPS 5 ML OPTH ONE (11:41)
[2019-04-28] MEDS ORDERED: TIMOLOL 0.5% OPHTH DROPS OPTH ONE (11:41)
[2019-04-28] MEDS ORDERED: BSS/LIDOCAINE/EPINEPHRINE 1 ML SYRINGE IO ONE (11:42)
[2019-04-28 12:04] VITALS: BP 109/65
--- NOTE | 2019-04-28 12:10 | OPERATIVE REPORT ---
DATE OF SERVICE: 04/28/2019 Physician: Cristino Kothari MD PREOPERATIVE DIAGNOSIS: Visually significant cataract, left eye. This was his first cataract surger y. POSTOPERATIVE DIAGNOSIS: Visually significant cataract, left eye. This was his first cataract surge ry. DESCRIPTION OF PROCEDURE: Phacoemulsification with posterior chamber intraocular lens implant, left eye. SURGEON: Cristino Kothari MD ANESTHESIA: Monitored anesthesia care. COMPLICATIONS: None. OPERATIVE INDICATIONS: This is an 84-year-old man with progressive vision loss in the left eye due t o 4+ nuclear sclerotic cataract. Best corrected visual acuity was 20/30 with glare to 20/300 in the left eye. Indications for surgery are overall decrease in vision, difficulty seeing words on the com puter screen, difficulty reading, difficulty seeing words, closed captions and game scores on TV, dif ficulty seeing street signs, difficulty with glare and bright lights in any situation, and difficulty tracking a golf ball. He was consented at length concerning risks and benefits of cataract surgery, after which he expressed a desire to proceed with surgery. OPERATIVE PROCEDURE: The patient was taken to OR #3 and placed under monitored anesthesia care. A s urgical timeout was conducted confirming correct patient, correct procedure, and correct surgical sit e. He was given topical anesthesia and then prepped and draped in the usual sterile fashion. The ey e was entered at the 6 and 3 o'clock positions. Intracameral Shugarcaine was injected into the anter ior chamber, followed by Viscoat. A continuous-tear curvilinear capsulorrhexis was performed. Nucle us was hydrodissected and phacoemulsified. The cortex was evacuated using automated infusion and asp iration. Provisc was injected in the capsular bag, and a 24.5 diopter intraocular lens inserted in t he bag. Approximately 0.8 mL the mixture of triamcinolone, moxifloxacin, and vancomycin was injected subconjunctivally in the superior quadrant for infection and inflammation prophylaxis. I and A, was used to evacuate the viscoelastic material. The eye was inflated to physiologic pressure using rebecca nced salt solution and found to be watertight. The patient was taken from the operating room in good condition and given postoperative instructions. TD: 04/28/2019 11:45
== END 2019-04-28 06:45 | disposition home or self-care (01) ==
LOC: SDS 06:44
PROVIDERS: ATTEND Ophthalmology
PROC: 08RK3JZ Replacement of Left Lens with Synthetic Substitute, Percutaneous Approach (ICD-10-PCS; principal; 2019-04-28 08:30)
DX: H25.12 Age-related nuclear cataract, left eye (principal); N40.0 Benign prostatic hyperplasia without lower urinary tract symptoms; I10 Essential (primary) hypertension; F40.240 Claustrophobia; Z86.14 Personal history of Methicillin resistant Staphylococcus aureus infection; Z79.899 Other long term (current) drug therapy; Z86.73 Personal history of transient ischemic attack (TIA), and cerebral infarction without residual deficits; Z79.82 Long term (current) use of aspirin
CPT/HCPCS: 66984; 87640; A9270; J3490; V2632

== ENCOUNTER 2019-05-01 10:48 | Outpatient (CLI) | payer MEDICARE, BC | END 2019-05-01 10:49 | disposition critical access hospital (66) | LOC: EMS 10:48 | PROVIDERS: ATTEND Surgery | DX: R55 Syncope and collapse (principal); R53.1 Weakness; R42 Dizziness and giddiness | CPT/HCPCS: A0425; A0427 ==

== ENCOUNTER 2019-05-01 11:16 | Emergency (ER) | payer MEDICARE, BC ==
[2019-05-01 11:30] VITALS: BP 132/65
[2019-05-01 11:59] LABS: BASOPHILS % (AUTO) 0.3 %; EOSINOPHILS # (AUTO) 0.1 10^3/uL (0.0-0.7); EOSINOPHILS % (AUTO) 1.4 %; HGB - HEMOGLOBIN 13.4 g/dL (14.0-18.0); LYMPHOCYTES # (AUTO) 3.3 10^3/uL (1.5-3.5); MEAN CORPUSCULAR HEMOGLOBIN 34.3 pg (27.0-31.0); MEAN CORPUSCULAR HGB CONC 34.6 g/dL (32.0-36.0); MEAN PLATELET VOLUME 9.7 fL (7.4-11.4); MONOCYTES # (AUTO) 0.6 10^3/uL (0.0-1.0); MONOCYTES % (AUTO) 6.6 %; NEUTROPHILS # (AUTO) 5.1 10^3/uL (1.5-6.6); NEUTROPHILS % (AUTO) 55.4 %; PLT - PLATELET COUNT 170 10^3/uL (130-450); RED BLOOD COUNT 3.91 10^6/uL (4.70-6.10); RED CELL DISTRIBUTION WIDTH 13.7 % (12.0-15.0); WHITE BLOOD COUNT 9.1 x10^3/uL (4.8-10.8)
[2019-05-01 12:13] LABS: ALBUMIN/GLOBULIN RATIO 1.5 (1.0-2.2); BILIRUBIN,TOTAL 0.9 mg/dL (0.2-1.0); CALCIUM 9.3 mg/dL (8.5-10.3); TOTAL PROTEIN 6.7 g/dL (6.7-8.2)
--- NOTE | 2019-05-01 13:05 | ED Physician Documentation ---
PD HPI SYNCOPE - Stated complaint Stated Complaint: NEAR SYNCOPE - Chief complaint Chief Complaint: Neuro - History obtained from History obtained from: Patient - History of Present Illness Timing - onset: Today (Eating breakfast and felt dizzy and had to lay down. No chest pain or palpitations, no N/V. Per EMS had afib on the monitor.) PD PAST MEDICAL HISTORY - Past Medical History Past Medical History: Yes Cardiovascular: Hypertension Respiratory: None Neuro: None Endocrine/Autoimmune: None GI: None : None HEENT: Chronic vision loss Psych: None Musculoskeletal: Osteoarthritis, Gout, Chronic back pain Derm: None - Past Surgical History Past Surgical History: Yes General: Appendectomy, Other - Present Medications Home Medications: Ambulatory Orders Medication Instructions Recorded Confirmed Aspirin [Aspir 81] 81 mg PO DAILY 09/24/15 05/01/19 Sertraline HCl [Zoloft] 50 mg PO DAILY 09/24/15 05/01/19 Atorvastatin [Lipitor] 10 mg PO DAILY 05/28/17 05/01/19 Calcium Carbonate/Vitamin D3 1 each PO DAILY 04/27/19 05/01/19 [Calcium 600 + Vit D 400 Tablet] Cyanocobalamin (Vitamin B-12) 1,000 mcg PO DAILY 04/27/19 05/01/19 [Vitamin B-12] Multivit-Min/FA/Lycopen/Lutein 1 each PO DAILY 04/27/19 05/01/19 [Centrum Silver Men Tablet] Tamsulosin HCl [Flomax] 0.4 mg PO DAILY 04/27/19 05/01/19 - Allergies Allergies/Adverse Reactions: Allergies Allergy/AdvReac Type Severity Reaction Status Date / Time No Known Drug Allergies Allergy Verified 04/25/19 16:59 - Social History Does the pt smoke?: No Smoking Status: Never smoker Does the pt drink ETOH?: No Does the pt have substance abuse?: No - Immunizations Immunizations are current?: Yes - POLST Patient has POLST: No PD ED PE NORMAL - Vitals Vital signs reviewed: Yes - General General: Alert and oriented X 3, No acute distress - Cardiac Cardiac: RRR, No murmur - Respiratory Respiratory: No respiratory distress, Clear bilaterally - Abdomen Abdomen: Normal bowel sounds, Soft, Non tender - Back Back: No CVA TTP, No spinal TTP - Derm Derm: Normal color, Warm and dry - Neuro Neuro: Alert and oriented X 3, Normal speech - Psych Psych: Normal mood, Normal affect Results - Vitals Vitals: Vital Signs - 24 hr 05/01/19 05/01/19 11:18 11:29 Heart Rate 72 76 Respiratory 15 18 Rate Blood Pressure 117/72 132/65 H O2 Saturation 94 93 Oxygen O2 Source Room air - EKG (time done) 1123 Rate: Rate (enter#) (74) Rhythm: NSR (with PAC) [place]: Normal Intervals: Normal MS, Other (mild IVCD) QRS: Normal Ischemia: Non specific changes Computer interpretation: Agree with computer - Labs Labs: Laboratory Tests 05/01/19 05/01/19 11:54 11:54 WBC 9.1 RBC 3.91 L Hgb 13.4 L Hct 38.7 L MCV 99.0 H MCH 34.3 H MCHC 34.6 RDW 13.7 Plt Count 170 MPV 9.7 Neut # (Auto) 5.1 Lymph # (Auto) 3.3 [place] # (Auto) 0.6 Eos # (Auto) 0.1 Baso # (Auto) 0.0 Absolute Nucleated RBC 0.00 Nucleated RBC % 0.0 Sodium 142 Potassium 4.2 Chloride 106 Carbon Dioxide 25 Anion Gap 11.0 BUN 21 H Creatinine 1.0 Estimated GFR (MDRD) 71 L Glucose 129 H Calcium 9.3 Total Bilirubin 0.9 AST 16 ALT 20 Alkaline Phosphatase 73 Total Protein 6.7 Albumin 4.0 Globulin 2.7 Albumin/Globulin Ratio 1.5 Lipase 39 PD MEDICAL DECISION MAKING - ED course ED course: 84-year-old gentleman had a near syncopal episode today, no full syncope or injury. His evaluation today is unremarkable except for potential atrial fibrillation on the way here which is not present on our monitor. Departure - Departure Disposition: 01 Home, Self Care Clinical Impression: Near syncope Condition: Good Record reviewed to determine appropriate education?: Yes Health Concerns: near syncope, possible afib Plan of Treatment: f/u in office for echo / holter Comments: Call your physician tomorrow, follow-up in the office. I recommend you discuss with her an echocardiogram and Holter monitor given that the paramedics may have seen atrial fibrillation on the way here which is not present on our evaluation now. Return for new or worsening symptoms.
== END 2019-05-01 13:38 | disposition home or self-care (01) ==
LOC: ED 11:16
DX: R55 Syncope and collapse (principal); I49.1 Atrial premature depolarization; I45.89 Other specified conduction disorders; I10 Essential (primary) hypertension; Z79.82 Long term (current) use of aspirin
CPT/HCPCS: 36415; 80053; 83690; 85025; 93005; 99281; 99283

== ENCOUNTER 2019-05-26 09:18 | Outpatient (CLI) | payer MEDICARE, BC | END 2019-05-26 09:19 | disposition home or self-care (01) | LOC: DI 09:18 | PROVIDERS: ATTEND Nurse Practitioner Family | DX: R06.00 Dyspnea, unspecified (principal) | CPT/HCPCS: 93306 ==

== ENCOUNTER 2019-09-08 07:42 | Day surgery (SDC) | payer MEDICARE, BC ==
[2019-09-08] MEDS ORDERED: MIDAZOLAM 2 MG/2 ML VIAL IVP ONE (07:43)
[2019-09-08] MEDS ORDERED: PHENYLEPHRINE 2.5% OPHTH 2 ML DROPS RIGHTEYE ONE (07:55)
[2019-09-08] MEDS ORDERED: KETOROLAC 0.45% OPHTH DROPS RIGHTEYE ONE (07:55)
[2019-09-08] MEDS ORDERED: CYCLOPENTOLATE 1% OPHTH DROPS 2 ML RIGHTEYE ONE (07:55)
[2019-09-08] MEDS ORDERED: PROPARACAINE 0.5% OPHTH DROPS 15 ML RIGHTEYE ONE (07:55)
[2019-09-08] MEDS ORDERED: LACTATED RINGERS 1,000 ML IV ONE (08:00)
--- NOTE | 2019-09-08 08:40 | ANESTHESIA ---
Pre-Anesthesia VS, & Labs - Diagnosis Right eye senile combined cataract - Procedure right eye cataract extraction with IOL implant Vital Signs: Temp Pulse Resp BP Pulse Ox 36.5 C 74 16 110/80 94 09/08/19 08:00 09/08/19 08:00 09/08/19 08:00 09/08/19 08:00 09/08/19 08:00 Height 5 ft 7 in Weight (kg) 81.3 kg Body Mass Index 25.8 - NPO >8 hours Home Medications and Allergies Home Medications: Ambulatory Orders Donepezil HCl 10 mg PO DAILY 09/07/19 Aspirin [Aspir 81] 81 mg PO DAILY 09/24/15 Sertraline HCl [Zoloft] 50 mg PO DAILY 09/24/15 Atorvastatin [Lipitor] 10 mg PO DAILY 05/28/17 Calcium Carbonate/Vitamin D3 [Calcium 600 + Vit D 400 Tablet] 1 each PO DAILY 04/27/19 Cyanocobalamin (Vitamin B-12) [Vitamin B-12] 1,000 mcg PO DAILY 04/27/19 Multivit-Min/FA/Lycopen/Lutein [Centrum Silver Men Tablet] 1 each PO DAILY 04/27/19 Tamsulosin HCl [Flomax] 0.4 mg PO DAILY 04/27/19 Donepezil HCl 10 mg PO DAILY 09/07/19 Allergies/Adverse Reactions: Allergies Allergy/AdvReac Type Severity Reaction Status Date / Time No Known Drug Allergies Allergy Verified 04/25/19 16:59 Anes History & Medical History - Anesthetic History Anesthesia Complications: reports: No previous complications - Medical History Cardiovascular: reports: Hypertension Pulmonary: reports: None Gastrointestinal: reports: None Urinary: reports: None Neuro: reports: None Musculoskeletal: reports: Osteoarthritis, Gout, Chronic back pain Endocrine/Autoimmune: reports: None Blood Disorders: reports: None Skin: reports: None Smoking Status: Never smoker Psychosocial: reports: No issues indicated - Surgical History General: Appendectomy, Other Eyes Ears Nose Throat (EENT): Cataracts Exam General: Alert, Oriented x3, Cooperative, No acute distress Dental: WNL Mouth Openin Fingerbreadth Mallampati classification: III Thyromental Distance: greater than 6 cm Respiratory: Lungs clear, Normal breath sounds, No respiratory distress, No accessory muscle use Cardiovascular: Regular rate, Normal S1, Normal S2, No murmurs Mental/Cognitive Status: Alert/Oriented X3, Normal for patient Plan Anesthesia Type: MAC Consent for Procedure(s) Verified and Reviewed: Yes Code Status: Attempt Resuscitation ASA classification: 2-Mild systemic disease Is this case an emergency?: No
[2019-09-08] MEDS ORDERED: EPINEPHrine 1 MG/ML AMP IVP ONE (09:23)
[2019-09-08] MEDS ORDERED: BRIMONIDINE 0.2% OPHTH DROPS 5 ML OPTH ONE (09:23)
[2019-09-08] MEDS ORDERED: CHONDR SULF/HYALURONATE SYRINGE IO ONE (09:23)
[2019-09-08] MEDS ORDERED: TIMOLOL 0.5% OPHTH DROPS OPTH ONE (09:24)
[2019-09-08] MEDS ORDERED: VANCOMYCIN OPHTHALMI 8MG/0.8ML 8 MG/0.8 ML SYRINGE IO ONE (09:24)
[2019-09-08] MEDS ORDERED: TRIAMCIN/MOXIFLOX OPHTHALMIC 0.6 ML VIAL IO ONE (09:24)
[2019-09-08] MEDS ORDERED: BSS/LIDOCAINE/EPINEPHRINE 1 ML SYRINGE IO ONE (09:24)
[2019-09-08 09:53] VITALS: BP 151/62
--- NOTE | 2019-09-08 12:17 | OPERATIVE REPORT ---
DATE OF SERVICE: 09/08/2019 Physician: Cristino Kothari MD PREOPERATIVE DIAGNOSIS: Visually significant cataract, right eye. Cataract surgery was performed on the left eye on 28 April 2019. POSTOPERATIVE DIAGNOSIS: Visually significant cataract, right eye. Cataract surgery was performed on the left eye on 28 April 2019. PROCEDURE: Phacoemulsification with posterior chamber intraocular lens implant, right eye. SURGEON: Cristino Kothari MD ANESTHESIA: Monitored anesthesia care. COMPLICATIONS: None. OPERATIVE INDICATIONS: This is an 84-year-old man with progressive vision loss in the right eye due to 4+ nuclear sclerotic cataract. Best corrected visual acuity was 20/25, with glare to 20/400 in the right eye. Indications for surgery were overall decrease in vision, difficulty reading, difficulty seeing words, closed caption or game scores on TV, difficulty seeing street signs and difficulty with glare or bright lights in any situation. He was consented at length concerning risks and benefits of cataract surgery, after which he expressed a desire to proceed with surgery. OPERATIVE PROCEDURE: Patient was taken into OR #3 and placed under monitored anesthesia care. A surgical timeout was conducted confirming correct patient, correct procedure, and correct surgical site. He was given topical anesthesia, and prepped and draped in the usual sterile fashion. The eye was entered at the 12 and 9 o'clock positions. Intracameral Shugarcaine was injected into the anterior chamber, followed by Viscoat. A continuous-tear curvilinear capsulorrhexis was performed. The nucleus was hydrodissected and phacoemulsified. The cortex was evacuated using automated infusion and aspiration. Provisc was injected in the capsular bag, and a 24.0 diopter intraocular lens inserted in the bag. Approximately 0.25 mL of a mixture of triamcinolone, moxifloxacin was injected transsclerally into the vitreous. An additional 0.55 mL of a mixture of triamcinolone, moxifloxacin and vancomycin was injected subconjunctivally in the superior quadrant for infection and inflammation prophylaxis. I and A, was used to evacuate the viscoelastic materials. The eye was inflated to physiologic pressure using balanced salt solution and found to be watertight. Patient was taken from the operating room in good condition and given postoperative instructions. TD: 09/08/2019 09:45 [facility]
== END 2019-09-08 07:43 | disposition home or self-care (01) ==
LOC: SDS 07:42
PROVIDERS: ATTEND Ophthalmology
PROC: 08RJ3JZ Replacement of Right Lens with Synthetic Substitute, Percutaneous Approach (ICD-10-PCS; principal; 2019-09-08 09:00)
DX: H25.11 Age-related nuclear cataract, right eye (principal); N40.0 Benign prostatic hyperplasia without lower urinary tract symptoms; I10 Essential (primary) hypertension; Z79.899 Other long term (current) drug therapy; G31.83 Neurocognitive disorder with Lewy bodies; F02.80 Dementia in other diseases classified elsewhere, unspecified severity, without behavioral disturbance, psychotic disturbance, mood disturbance, and anxiety; Z79.82 Long term (current) use of aspirin; Z98.42 Cataract extraction status, left eye; Z87.891 Personal history of nicotine dependence
CPT/HCPCS: 66984; A9270; J3490; J7120; V2632

== ENCOUNTER 2019-10-26 13:40 | Outpatient (CLI) | payer MEDICARE, BC ==
--- NOTE | 2019-10-27 07:54 | XRAY Report ---
Reason: CLOSED FRACT OF MULT LT RIBS Procedure Date: 10/26/2019 Accession Number: [id number] / [id number] Procedure: XRS - Ribs w/PA Chest LT CPT Code: Final Report FULL RESULT: EXAM: LEFT RIB RADIOGRAPHY EXAM DATE: 10/26/2019 01:57 PM. CLINICAL HISTORY: CLOSED FRACT OF MULT LT RIBS. COMPARISON: CHEST 2 VIEW 04/25/2019 6:29 PM. TECHNIQUE: 1 view of the chest and 2 views of the ribs. FINDINGS: Bones: No acute left rib fracture. There are remote left fifth through seventh posterior lateral rib fractures. There are healing posterior left seventh and eighth rib fractures. Lungs: There is right costophrenic sulcus blunting. No lobar infiltrate. No pneumothorax. Mediastinum: Heart and mediastinal contours are unremarkable. Other: None. IMPRESSION: 1. No evidence of acute rib fracture. 2. There are nonacute posterior left seventh and eighth and posterior lateral fifth through seventh rib fractures. 3. No evidence of lobar infiltrate or pneumothorax. 4. Right costophrenic sulcus blunting is suspicious for small pleural effusion. RADIA
== END 2019-10-26 13:41 | disposition home or self-care (01) ==
LOC: DI.S 13:40
PROVIDERS: ATTEND Nurse Practitioner Family
DX: S22.42XD Multiple fractures of ribs, left side, subsequent encounter for fracture with routine healing (principal)

== ENCOUNTER 2020-05-03 14:03 | Outpatient (CLI) | payer MEDICARE, BC ==
[2020-05-03 14:57] LABS: ALBUMIN 4.3 g/dL (3.2-5.5); ALBUMIN/GLOBULIN RATIO 1.5 (1.0-2.2); ALKALINE PHOSPHATASE 64 IU/L (42-121); ALT ALANINE AMINOTRANSFERASE 26 IU/L (10-60); AST ASPARTATE AMINOTRANSFERASE 21 IU/L (10-42); BILIRUBIN,TOTAL 0.6 mg/dL (0.2-1.0); BUN - BLOOD UREA NITROGEN 22 mg/dL (6-20); CALCIUM 9.4 mg/dL (8.5-10.3); CARBON DIOXIDE - CO2 26 mmol/L (21-32); CHLORIDE 104 mmol/L (101-111); CHOL/HDL RATIO 3.6 (<5.0); CHOLESTEROL 152 mg/dL; CREATININE 0.8 mg/dL (0.6-1.2); GLUCOSE 130 mg/dL (70-100); HDL CHOLESTEROL 42 mg/dL; LDL CHOLESTEROL,CALCULATED 57 mg/dL; LDL/HDL RATIO 1.4 (<3.6); SODIUM 139 mmol/L (135-145); TOTAL PROTEIN 7.1 g/dL (6.7-8.2); VLDL CHOLESTEROL 53 mg/dL
== END 2020-05-03 14:04 | disposition home or self-care (01) ==
LOC: LAB 14:03
PROVIDERS: ATTEND Internal Medicine Cardiovascular Disease
DX: Z79.899 Other long term (current) drug therapy (principal)
CPT/HCPCS: 36415; 80053; 80061; 83721

== ENCOUNTER 2021-03-01 08:00 | Outpatient (CLI) | payer MEDICARE, BC ==
--- NOTE | 2021-03-01 16:02 | XRAY Report ---
PROCEDURE: Chest 2 View X-Ray INDICATIONS: DYSPNEA TECHNIQUE: 2 view(s) of the chest. COMPARISON: Chest x-ray 10/26/2019 FINDINGS: Surgical changes and devices: None. Lungs and pleura: No pleural effusions or pneumothorax. Lungs are clear. Mediastinum: Mediastinal contours are normal. Heart size is normal. Bones and chest wall: No suspicious bony abnormalities. Soft tissues appear unremarkable. IMPRESSION: No acute pulmonary process. Reviewed by: Brittanie Steiner MD on 03/01/2021 4:01 PM PDT Approved by: Brittanie Steiner MD on 03/01/2021 4:01 PM PDT Station ID: [id number]
== END 2021-03-01 23:59 | disposition home or self-care (01) ==
LOC: DI.S 08:00
PROVIDERS: ATTEND Physician Assistant
DX: R06.00 Dyspnea, unspecified (principal)

== ENCOUNTER 2021-03-01 14:19 | Outpatient (CLI) | payer MEDICARE, BC ==
[2021-03-01 21:02] LABS: BASOPHILS % (AUTO) 0.4 %; EOSINOPHILS # (AUTO) 0.1 10^3/uL (0.0-0.7); EOSINOPHILS % (AUTO) 1.1 %; HCT - HEMATOCRIT 42.3 % (42.0-52.0); HGB - HEMOGLOBIN 13.7 g/dL (14.0-18.0); LYMPHOCYTES # (AUTO) 3.3 10^3/uL (1.5-3.5); LYMPHOCYTES % (AUTO) 42.2 %; MEAN CORPUSCULAR HGB CONC 32.4 g/dL (32.0-36.0); MEAN CORPUSCULAR VOLUME 101.9 fL (80.0-94.0); MEAN PLATELET VOLUME 10.5 fL (7.4-11.4); MONOCYTES # (AUTO) 0.6 10^3/uL (0.0-1.0); NEUTROPHILS # (AUTO) 3.9 10^3/uL (1.5-6.6); NEUTROPHILS % (AUTO) 49.2 %; PLT - PLATELET COUNT 172 10^3/uL (130-450); RED BLOOD COUNT 4.15 10^6/uL (4.70-6.10); RED CELL DISTRIBUTION WIDTH 13.2 % (12.0-15.0); WHITE BLOOD COUNT 7.9 x10^3/uL (4.8-10.8)
[2021-03-01 21:11] LABS: ALBUMIN 4.3 g/dL (3.2-5.5); ALBUMIN/GLOBULIN RATIO 1.6 (1.0-2.2); BILIRUBIN,TOTAL 0.8 mg/dL (0.2-1.0); CALCIUM 9.6 mg/dL (8.5-10.3); CREATININE 0.9 mg/dL (0.6-1.2)
== END 2021-03-01 14:20 | disposition home or self-care (01) ==
LOC: LAB.S 14:19
PROVIDERS: ATTEND Physician Assistant
DX: R06.00 Dyspnea, unspecified (principal)
CPT/HCPCS: 36415; 80053; 85025

== ENCOUNTER 2021-03-08 14:15 | Outpatient (CLI) | payer MEDICARE, BC ==
[2021-03-08 20:19] LABS: BASOPHILS % (AUTO) 0.3 %; EOSINOPHILS # (AUTO) 0.1 10^3/uL (0.0-0.7); HCT - HEMATOCRIT 41.6 % (42.0-52.0); HGB - HEMOGLOBIN 13.6 g/dL (14.0-18.0); LYMPHOCYTES # (AUTO) 2.9 10^3/uL (1.5-3.5); LYMPHOCYTES % (AUTO) 37.4 %; MEAN CORPUSCULAR HEMOGLOBIN 33.3 pg (27.0-31.0); MEAN CORPUSCULAR HGB CONC 32.7 g/dL (32.0-36.0); MEAN PLATELET VOLUME 10.7 fL (7.4-11.4); MONOCYTES # (AUTO) 0.5 10^3/uL (0.0-1.0); MONOCYTES % (AUTO) 6.5 %; NEUTROPHILS # (AUTO) 4.3 10^3/uL (1.5-6.6); NEUTROPHILS % (AUTO) 54.7 %; PLT - PLATELET COUNT 170 10^3/uL (130-450); RED BLOOD COUNT 4.08 10^6/uL (4.70-6.10); RED CELL DISTRIBUTION WIDTH 13.1 % (12.0-15.0); WHITE BLOOD COUNT 7.8 x10^3/uL (4.8-10.8)
[2021-03-08 20:31] LABS: ALBUMIN 4.2 g/dL (3.2-5.5); ALBUMIN/GLOBULIN RATIO 1.6 (1.0-2.2); CALCIUM 9.6 mg/dL (8.5-10.3); CREATININE 1.1 mg/dL (0.6-1.2); TOTAL PROTEIN 6.9 g/dL (6.7-8.2)
[2021-03-08 20:38] LABS: % IRON SATURATION 24 % (20-50); IRON 89 ug/dL (45-182); TOTAL IRON BINDING CAPACITY 375 ug/dL (250-450); TRANSFERRIN 268 mg/dL (180-329)
[2021-03-08 20:55] LABS: FERRITIN 155.6 ng/mL (23.9-336.2)
== END 2021-03-08 14:16 | disposition home or self-care (01) ==
LOC: LAB.S 14:15
PROVIDERS: ATTEND Registered Nurse
DX: D53.9 Nutritional anemia, unspecified (principal); R06.09 Other forms of dyspnea
CPT/HCPCS: 36415; 80053; 82607; 82728; 83540; 83880; 84466; 85025

== ENCOUNTER 2021-05-01 08:55 | Outpatient (CLI) | payer MEDICARE, BC | END 2021-05-01 08:56 | disposition home or self-care (01) | LOC: DI 08:55 | PROVIDERS: ATTEND Internal Medicine Cardiovascular Disease | DX: R06.00 Dyspnea, unspecified (principal) | CPT/HCPCS: 93306 ==

== ENCOUNTER 2021-05-20 16:14 | Outpatient (CLI) | payer MEDICARE, BC ==
--- NOTE | 2021-05-21 09:40 | XRAY Report ---
PROCEDURE: Chest 2 View X-Ray INDICATIONS: Chest pain TECHNIQUE: 2 view(s) of the chest. COMPARISON: None. FINDINGS: Surgical changes and devices: None. Lungs and pleura: No pleural effusions or pneumothorax. Lungs are clear. Mediastinum: Mediastinal contours are normal. Heart size is normal. Bones and chest wall: No suspicious bony abnormalities. Soft tissues appear unremarkable. IMPRESSION: No acute cardiopulmonary process demonstrated radiographically. Reviewed by: Gary Suarez MD on 05/21/2021 9:39 AM PDT Approved by: Gary Suarez MD on 05/21/2021 9:39 AM PDT Station ID: [id number]
--- NOTE | 2021-05-21 09:41 | XRAY Report ---
PROCEDURE: Ribs 2 View RT INDICATIONS: CHEST PAIN TECHNIQUE: 3 views of the right ribs were acquired. COMPARISON: None FINDINGS: Surgical changes and devices: None. Bones and chest wall: No fractures or dislocations. No suspicious bony lesions. Overlying soft tis sues appear unremarkable. Lungs and pleura: The visualized lung appears clear. No pleural effusions or pneumothorax are visib le. IMPRESSION: No rib fracture or suspicious lesion in the right rib area of interest. Reviewed by: Gary Suarez MD on 05/21/2021 9:39 AM PDT Approved by: Gary Suarez MD on 05/21/2021 9:39 AM PDT Station ID: [id number]
== END 2021-05-20 16:15 | disposition home or self-care (01) ==
LOC: DI 16:14
PROVIDERS: ATTEND Internal Medicine
DX: R07.9 Chest pain, unspecified (principal)

== ENCOUNTER 2021-12-12 14:32 | Outpatient (CLI) | payer MEDICARE, BC ==
--- NOTE | 2021-12-12 16:45 | XRAY Report ---
PROCEDURE: Shoulder 3 View RT INDICATIONS: PAIN OF RIGHT SHOULDER JOINT TECHNIQUE: 3 views of the shoulder were acquired. COMPARISON: None. FINDINGS: Bones: No fractures or dislocations. No suspicious bony lesions. Visualized ribs appear intact. M oderate degenerative acromioclavicular narrowing. Humeral head is high riding. Glenohumeral narrowing is present. Soft tissues: No suspicious soft tissue calcifications. IMPRESSION: Moderate acromioclavicular as well as glenohumeral narrowing. High riding humeral head which can be seen with rotator cuff pathology. Reviewed by: Brittanie Steiner MD on 12/12/2021 4:44 PM PST Approved by: Brittanie Steiner MD on 12/12/2021 4:44 PM PST Station ID: [id number]
== END 2021-12-12 14:33 | disposition home or self-care (01) ==
LOC: DI.S 14:32
PROVIDERS: ATTEND Nurse Practitioner Family
DX: M19.011 Primary osteoarthritis, right shoulder (principal); R93.6 Abnormal findings on diagnostic imaging of limbs

== ENCOUNTER 2022-03-12 16:18 | Outpatient (CLI) | payer MEDICARE, BC ==
[2022-03-12 19:50] LABS: BASOPHILS % (AUTO) 0.2 %; EOSINOPHILS # (AUTO) 0.1 10^3/uL (0.0-0.7); EOSINOPHILS % (AUTO) 1.5 %; HCT - HEMATOCRIT 38.9 % (42.0-52.0); LYMPHOCYTES # (AUTO) 3.1 10^3/uL (1.5-3.5); MEAN CORPUSCULAR HEMOGLOBIN 33.8 pg (27.0-31.0); MEAN CORPUSCULAR HGB CONC 33.4 g/dL (32.0-36.0); MEAN PLATELET VOLUME 10.6 fL (7.4-11.4); MONOCYTES # (AUTO) 0.5 10^3/uL (0.0-1.0); MONOCYTES % (AUTO) 5.8 %; NEUTROPHILS # (AUTO) 5.1 10^3/uL (1.5-6.6); NEUTROPHILS % (AUTO) 57.4 %; PLT - PLATELET COUNT 184 10^3/uL (130-450); RED BLOOD COUNT 3.85 10^6/uL (4.70-6.10); RED CELL DISTRIBUTION WIDTH 13.2 % (12.0-15.0); WHITE BLOOD COUNT 8.9 x10^3/uL (4.8-10.8)
[2022-03-12 20:09] LABS: ALBUMIN 3.6 g/dL (3.2-5.5); ALBUMIN/GLOBULIN RATIO 1.3 (1.0-2.2); ALKALINE PHOSPHATASE 69 IU/L (42-121); ALT ALANINE AMINOTRANSFERASE 22 IU/L (10-60); AST ASPARTATE AMINOTRANSFERASE 20 IU/L (10-42); BILIRUBIN,TOTAL 0.3 mg/dL (0.2-1.0); BUN - BLOOD UREA NITROGEN 26 mg/dL (6-20); CALCIUM 9.2 mg/dL (8.5-10.3); CARBON DIOXIDE - CO2 27 mmol/L (21-32); CHLORIDE 104 mmol/L (101-111); CHOL/HDL RATIO 3.5 (<5.0); CHOLESTEROL 126 mg/dL; CREATININE 0.9 mg/dL (0.6-1.2); GFR - MDRD 80 (>89); GLUCOSE 90 mg/dL (70-100); HDL CHOLESTEROL 36 mg/dL; LDL CHOLESTEROL,CALCULATED 53 mg/dL; LDL/HDL RATIO 1.5 (<3.6); POTASSIUM 3.9 mmol/L (3.5-5.0); SODIUM 139 mmol/L (135-145); TOTAL PROTEIN 6.3 g/dL (6.7-8.2); TRIGLYCERIDES 185 mg/dL; VLDL CHOLESTEROL 37 mg/dL
== END 2022-03-12 16:19 | disposition home or self-care (01) ==
LOC: LAB.S 16:18
PROVIDERS: ATTEND Registered Nurse
DX: E78.5 Hyperlipidemia, unspecified (principal); D75.89 Other specified diseases of blood and blood-forming organs
CPT/HCPCS: 36415; 80053; 80061; 82607; 82746; 83721; 85025

== ENCOUNTER 2022-08-24 16:23 | Outpatient (CLI) | payer MEDICARE, BC | END 2022-08-24 16:24 | disposition EMS.NT | LOC: EMS 16:23 | DX: Z03.89 Encounter for observation for other suspected diseases and conditions ruled out (principal) ==

== ENCOUNTER 2022-12-23 13:19 | Outpatient (CLI) | payer MEDICARE, BC | END 2022-12-23 13:20 | disposition EMS.NT | LOC: EMS 13:19 | DX: R53.1 Weakness (principal) ==

== ENCOUNTER 2022-12-30 09:21 | Outpatient (CLI) | payer MEDICARE, BC | END 2022-12-30 23:59 | disposition EMS.NT | LOC: EMS 09:21 | DX: R53.1 Weakness (principal) ==

== ENCOUNTER 2023-01-03 12:57 | Outpatient (CLI) | payer MEDICARE, BC | END 2023-01-03 12:58 | disposition EMS.NT | LOC: EMS 12:57 | DX: R53.1 Weakness (principal) ==

== ENCOUNTER 2023-01-22 05:16 | Outpatient (CLI) | payer MEDICARE, BC | END 2023-01-22 05:17 | disposition critical access hospital (66) | LOC: EMS 05:16 | DX: R10.33 Periumbilical pain (principal); R10.815 Periumbilic abdominal tenderness; R06.02 Shortness of breath; I48.91 Unspecified atrial fibrillation | CPT/HCPCS: A0425; A0427 ==

== ENCOUNTER 2023-01-22 05:41 | Emergency (ER) | payer MEDICARE, BC ==
--- NOTE | 2023-01-22 05:49 | ED Physician Documentation ---
History of Present Illness - Stated complaint Stated Complaint: ABD PAIN - History obtained from History obtained from: Patient, Family, EMS - Additonal information Additional information: Brought in by ambulance. HPI is primarily from EMS report. Patient does contribute some HPI/ROS, although his tachypnea limits this information. Shortly after patient's arrival, patient's arrived to the emergency department and she also provides some HPI. Patient's chief complaint is abdominal pain, diffuse, rated 8 out of 10 by the patient, described as "piercing", started last night without inciting event. Patient also complains of dyspnea, unclear onset. Patient's said the patient had been having dyspnea on exertion, particularly when walking up the stairs, but that this has been gradual onset and not noticeably worsening over many months. Patient's comments that the dyspnea he has at this time is not his baseline. EMS notes that patient had 89% pulse ox on room air when they first evaluated him, improving to 96% with 3 L nasal cannula oxygen. Patient has no pulmonary history and does not use oxygen at home. Patient denies chest pain. Review of Systems Unable to obtain: Other Cardiac: denies: Chest pain / pressure, Palpitations Respiratory: reports: Dyspnea. denies: Cough, Wheezing GI: reports: Abdominal Pain. denies: Nausea, Vomiting PD PAST MEDICAL HISTORY - Past Medical History Cardiovascular: Hypertension Respiratory: None Neuro: None Endocrine/Autoimmune: None GI: None : None HEENT: Chronic vision loss Psych: None Musculoskeletal: Osteoarthritis, Chronic back pain, Gout Derm: None - Past Surgical History Past Surgical History: Yes General: Appendectomy, Other HEENT: Cataracts - Present Medications Home Medications: Ambulatory Orders Medication Instructions Recorded Confirmed Aspirin [Aspir 81] 81 mg PO DAILY 09/24/15 09/08/19 Sertraline HCl [Zoloft] 50 mg PO DAILY 09/24/15 09/08/19 Atorvastatin [Lipitor] 10 mg PO DAILY 05/28/17 09/08/19 Calcium Carbonate/Vitamin D3 1 each PO DAILY 04/27/19 09/08/19 [Calcium 600 + Vit D 400 Tablet] Cyanocobalamin (Vitamin B-12) 1,000 mcg PO DAILY 04/27/19 09/08/19 [Vitamin B-12] Multivit-Min/FA/Lycopen/Lutein 1 each PO DAILY 04/27/19 09/08/19 [Centrum Silver Men Tablet] Tamsulosin HCl [Flomax] 0.4 mg PO DAILY 04/27/19 09/08/19 Donepezil HCl 10 mg PO DAILY 09/07/19 09/08/19 - Allergies Allergies/Adverse Reactions: Allergies Allergy/AdvReac Type Severity Reaction Status Date / Time shellfish derived Allergy Nausea Verified 01/22/23 06:46 - Social History Does the pt smoke?: No Smoking Status: Never smoker Does the pt drink ETOH?: No Does the pt have substance abuse?: No - Immunizations Immunizations are current?: Yes - POLST Patient has POLST: No PD ED PE NORMAL - Vitals Vital signs reviewed: Yes - General General: Alert and oriented X 3, Well developed/nourished, Other (tachypneic, answers with 1-2 word answers due to dyspnea) - HEENT HEENT: Other (tachy mucous membranes) - Neck Neck: Supple, no meningeal sign - Abdomen Abdomen: Soft, Non distended, Other (periumbilcal TTP without rebound or guarding) - Derm Derm: Normal color, Warm and dry - Extremities Extremities: No edema PD ED PE EXPANDED - Cardiac Cardiac: Irregularly irregular - Respiratory Respiratory: Distress (tachypneic, answers to my questions are parsed into 1-2 words at a time due to dyspnea, tachypnea) Results - Vitals Vitals: Vital Signs - 24 hr 01/22/23 01/22/23 01/22/23 05:47 05:59 06:29 Temperature 36.8 C Heart Rate 72 78 79 Respiratory 26 H 24 25 H Rate Blood Pressure 110/88 H 110/88 H 165/93 H O2 Saturation 83 L 96 97 If not protocol 3 3 : Oxygen Flow, liters/minute 01/22/23 01/22/23 01/22/23 06:30 06:45 08:01 Temperature Heart Rate 72 73 69 Respiratory 19 18 18 Rate Blood Pressure 165/93 H 165/83 H O2 Saturation 97 97 98 If not protocol 3 3 3 : Oxygen Flow, liters/minute 01/22/23 01/22/23 01/22/23 08:48 09:48 09:50 Temperature Heart Rate 64 62 68 Respiratory 18 18 17 Rate Blood Pressure 156/73 H O2 Saturation 98 94 If not protocol 3 : Oxygen Flow, liters/minute Oxygen O2 Source Room air - EKG (time done) No standard instances EKG releavant findings:: EKG personally interpreted by author of this note. Relevant findings are: Rate: Rate (enter#) (78) Rhythm: Atrial fibrillation [place]: LAD Intervals: RBBB Other comments: Other comments (My interpretation of this EKG is as above including atrial fibrillation, but note that there is significant artifact) - Labs Labs: Laboratory Tests 01/22/23 01/22/23 01/22/23 06:05 06:05 06:05 WBC 9.0 RBC 3.97 L Hgb 13.1 L Hct 40.1 L MCV 101.0 H MCH 33.0 H MCHC 32.7 RDW 13.2 Plt Count 163 MPV 10.6 Neut # (Auto) 6.1 Lymph # (Auto) 2.2 Sampson # (Auto) 0.6 Eos # (Auto) 0.1 Baso # (Auto) 0.0 Absolute Nucleated RBC 0.00 Nucleated RBC % 0.0 Sodium Potassium Chloride Carbon Dioxide Anion Gap BUN Creatinine Estimated GFR (MDRD) Glucose Calcium Total Bilirubin AST ALT Alkaline Phosphatase Troponin I High Sens 10.9 B-Natriuretic Peptide 213 H Total Protein Albumin Globulin Albumin/Globulin Ratio Lipase Urine Color Urine Clarity Urine pH Ur Specific [place] Urine Protein Urine Glucose (UA) Urine Ketones Urine Occult Blood Urine Nitrite Urine Bilirubin Urine Urobilinogen Ur Leukocyte Esterase Urine RBC Urine WBC Ur Squamous Epith Cells Urine Bacteria Ur Microscopic Review Urine Culture Comments Nasal Adenovirus (PCR) Nasal B. parapertussis DNA (PCR) Nasal Coronavir 229E PCR Nasal Coronavir HKU1 PCR Nasal Coronavir NL63 PCR Nasal Coronavir OC43 PCR Nasal Enterovir/Rhinovir PCR Nasal Influenza B PCR Nasal Influenza A PCR Nasal Parainfluen 1 PCR Nasal Parainfluen 2 PCR Nasal Parainfluen 3 PCR Nasal Parainfluen 4 PCR Nasal RSV (PCR) Nasal B.pertussis DNA PCR Nasal C.pneumoniae (PCR) Kishore Human Metapneumo PCR Nasal M.pneumoniae (PCR) Nasal SARS-CoV-2 (PCR) 01/22/23 01/22/23 01/22/23 06:25 06:38 08:13 WBC RBC Hgb Hct MCV MCH MCHC RDW Plt Count MPV Neut # (Auto) Lymph # (Auto) Sampson # (Auto) Eos # (Auto) Baso # (Auto) Absolute Nucleated RBC Nucleated RBC % Sodium 145 Potassium 4.1 Chloride 110 Carbon Dioxide 28 Anion Gap 7.0 BUN 22 H Creatinine 0.8 Estimated GFR (MDRD) 91 Glucose 115 H Calcium 9.0 Total Bilirubin 0.5 AST 19 ALT 22 Alkaline Phosphatase 64 Troponin I High Sens B-Natriuretic Peptide Total Protein 6.8 Albumin 3.5 Globulin 3.3 Albumin/Globulin Ratio 1.1 Lipase 32 Urine Color YELLOW Urine Clarity SL. CLOUDY Urine pH 7.0 Ur Specific [place] 1.025 Urine Protein 100 H Urine Glucose (UA) NEGATIVE Urine Ketones NEGATIVE Urine Occult Blood SMALL H Urine Nitrite POSITIVE H Urine Bilirubin NEGATIVE Urine Urobilinogen 1 (NORMAL) Ur Leukocyte Esterase LARGE H Urine RBC 6-10 H Urine WBC >25 H Ur Squamous Epith Cells RARE Squamous Urine Bacteria Many H Ur Microscopic Review INDICATED Urine Culture Comments INDICATED Nasal Adenovirus (PCR) NOT DETECTED Nasal B. parapertussis DNA (PCR) NOT DETECTED Nasal Coronavir 229E PCR NOT DETECTED Nasal Coronavir HKU1 PCR NOT DETECTED Nasal Coronavir NL63 PCR NOT DETECTED Nasal Coronavir OC43 PCR NOT DETECTED Nasal Enterovir/Rhinovir PCR NOT DETECTED Nasal Influenza B PCR NOT DETECTED Nasal Influenza A PCR NOT DETECTED Nasal Parainfluen 1 PCR NOT DETECTED Nasal Parainfluen 2 PCR NOT DETECTED Nasal Parainfluen 3 PCR NOT DETECTED Nasal Parainfluen 4 PCR NOT DETECTED Nasal RSV (PCR) NOT DETECTED Nasal B.pertussis DNA PCR NOT DETECTED Nasal C.pneumoniae (PCR) NOT DETECTED Kishore Human Metapneumo PCR NOT DETECTED Nasal M.pneumoniae (PCR) NOT DETECTED Nasal SARS-CoV-2 (PCR) NOT DETECTED - Rads (name of study) chest xray Relevant Findings:: Prelim report reviewed, EMP independent interpretation of test (I reviewed these images and my interpretation is multiple old left rib fractures; right basilar atelectasis), See rad report PD Medical Decision Making - ED course Complexity details: reviewed results, re-evaluated patient, considered differential, d/w patient, d/w family ED course: I was in the room when the patient was first brought to the ER by EMS. He was transferred from the EMS gurney to the ER stretcher, and within 1 or 2 minutes, I note that his pulse ox steadily dropped to as low as 83% with a strong and correlating pleth on the monitor. He also became visibly increasingly dyspneic as his pulse ox dropped. ED RN then removed patient's facemask and noted that his nasal cannula had displaced; upon repositioning of the nasal cannula, his pulse ox steadily improved to 96% and his dyspnea also improved though did not resolve. No concerning nor diagnostic findings on chest x-ray, CBC, ER abdominal panel. BNP is elevated (213). Normal hs-cTn. Urinalysis is strongly suggestive of UTI. A CT of the abdomen pelvis with intravenous contrast as well as CTA of the chest are pending at the end of my shift and thus care patient is turned over to the oncoming emergency department physician (Dr. Hollins).
[2023-01-22 06:16] LABS: BASOPHILS % (AUTO) 0.1 %; EOSINOPHILS # (AUTO) 0.1 10^3/uL (0.0-0.7); EOSINOPHILS % (AUTO) 1.1 %; HCT - HEMATOCRIT 40.1 % (42.0-52.0); HGB - HEMOGLOBIN 13.1 g/dL (14.0-18.0); LYMPHOCYTES # (AUTO) 2.2 10^3/uL (1.5-3.5); LYMPHOCYTES % (AUTO) 24.6 %; MEAN CORPUSCULAR HGB CONC 32.7 g/dL (32.0-36.0); MEAN PLATELET VOLUME 10.6 fL (7.4-11.4); MONOCYTES # (AUTO) 0.6 10^3/uL (0.0-1.0); MONOCYTES % (AUTO) 6.7 %; NEUTROPHILS # (AUTO) 6.1 10^3/uL (1.5-6.6); NEUTROPHILS % (AUTO) 67.1 %; PLT - PLATELET COUNT 163 10^3/uL (130-450); RED BLOOD COUNT 3.97 10^6/uL (4.70-6.10); RED CELL DISTRIBUTION WIDTH 13.2 % (12.0-15.0)
[2023-01-22] MEDS ORDERED: iohexoL-300 100 ML VIAL ONE (06:32)
[2023-01-22] MEDS ORDERED: MORPHINE 2 MG/ML CARPUJECT IVP STA (06:41)
[2023-01-22 06:44] LABS: ALBUMIN 3.5 g/dL (3.2-5.5); ALBUMIN/GLOBULIN RATIO 1.1 (1.0-2.2); BILIRUBIN,TOTAL 0.5 mg/dL (0.2-1.0); CREATININE 0.8 mg/dL (0.6-1.2); POTASSIUM 4.1 mmol/L (3.5-5.0); TOTAL PROTEIN 6.8 g/dL (6.7-8.2)
[2023-01-22 06:45] LABS: BILIRUBIN,URINE NEGATIVE (NEGATIVE); CLARITY,URINE SL. CLOUDY (CLEAR); GLUCOSE, URINE (UA) NEGATIVE (NEGATIVE); KETONES,URINE (UA) NEGATIVE (NEGATIVE); LEUKOCYTE ESTERASE, URINE LARGE (NEGATIVE); NITRITE,URINE POSITIVE (NEGATIVE); OCCULT BLOOD,URINE SMALL (NEGATIVE); PROTEIN,URINE 100 mg/dL (NEGATIVE); UROBILINOGEN,URINE 1 (NORMAL) E.U./dL (NORMAL)
[2023-01-22 06:51] LABS: BACTERIA,URINE Many /HPF (None Seen); SQUAMOUS EPITHELIAL CELL,UR RARE Squamous (<= Few); WBC,URINE >25 /HPF (0-3)
--- NOTE | 2023-01-22 07:35 | XRAY Report ---
PROCEDURE: Chest 1 View X-Ray INDICATIONS: dypnea TECHNIQUE: One view of the chest was acquired. COMPARISON: May 20, 2021 FINDINGS: Surgical changes and devices: None. Lungs and pleura: Low lung volumes and probable atelectasis at the right lung base, possible compone nt airspace disease. No pleural effusions. Mediastinum: Mediastinal contours appear normal. Heart size is normal. Bones and chest wall: No suspicious bony lesions. Overlying soft tissues appear unremarkable. IMPRESSION: Low lung volumes limited evaluation. Probable atelectasis at the lung bases, possible component of ai rspace disease. Consider future imaging surveillance to assess for resolution. Agree with preliminary report Reviewed by: Dudley Rod MD on 01/22/2023 7:33 AM PDT Approved by: Dudley Rod MD on 01/22/2023 7:33 AM PDT Station ID: [id number]
[2023-01-22] MEDS ORDERED: iohexoL-300 100 ML VIAL IVP ONE (07:42)
[2023-01-22] MEDS ORDERED: cefTRIAXone 1 GM in SODIUM CHLORIDE 0.9% MINIBAG 100 ML IV STA (08:23)
[2023-01-22] MEDS ORDERED: ALBUTEROL NEB 2.5 MG/3 ML INH STA (09:23)
--- NOTE | 2023-01-22 09:35 | CT Report ---
PROCEDURE: ABDOMEN/PELVIS W INDICATIONS: abdominal pain, tenderness CONTRAST: Omni 300 100ml TECHNIQUE: After the administration of the contrast, 5 mm thick sections acquired from the diaphragms to the sym physis. 5 mm thick coronal and sagittal reformats were acquired. For radiation dose reduction, the following was used: automated exposure control, adjustment of mA and/or kV according to patient size . COMPARISON: CT chest 02/09/2019. FINDINGS: Image quality: Excellent. Lung bases and heart: Platelike opacity is noted in the right base likely atelectasis. Liver: Multiple low-attenuation hepatic foci are present suggestive of simple cysts. Gallbladder and biliary tree: Unremarkable. Spleen: Unremarkable. Pancreas: Unremarkable. Adrenals: 2.1 x 2.3 cm left adrenal mass. It is unchanged compared to 2019, at which time Hounsfield units on the noncontrast exam measured 10. Kidneys and ureters: Bilateral simple renal cysts are present measuring 7.2 cm on the left and 4.5 cm on the right. Bowel and peritoneum: No bowel distension. No pathologic free fluid. Appendix is normal. Colonic dive rticula are present. There is a minimal appearance of pericolonic stranding and thickening within the mid sigmoid colon which is in direct approximation to the bladder. Lymph nodes: No central or retroperitoneal adenopathy. Vessels: Unremarkable. PELVIS Reproductive organs: Unremarkable. Bladder: The bladder demonstrates marked wall thickening with pericystic inflammatory change. Prostat e gland is enlarged. Lymph nodes: Unremarkable. Bones: No aggressive osseous abnormality. Other: None. IMPRESSION: Marked bladder wall thickening with pericystic inflammatory change. This could represent primary urin nalini pathology such as cystitis and correlation to symptoms and urinalysis is recommended. It is noted that there is mild adjacent thickening of the sigmoid bowel loop suspected to be secondary given the greater degree of inflammatory change at the bladder. Left adrenal mass stable compared to prior exam and most suggestive of benign adenoma. Reviewed by: Brittanie Steiner MD on 01/22/2023 9:33 AM PDT Approved by: Brittanie Steiner MD on 01/22/2023 9:33 AM PDT Station ID: [id number]
--- NOTE | 2023-01-22 09:36 | CT Report ---
PROCEDURE: ANGIO CHEST W/WO INDICATIONS: dyspnea, hypoxia CONTRAST: Omni 300 100ml TECHNIQUE: After the administration of intravenous contrast, 2 mm axial images were acquired from the pulmonary apices to the posterior costophrenic angles during the arterial phase. In addition, 1 mm lung kernel and 5 mm soft tissue kernel reconstructions were performed. 3-dimensional coronal oblique maximum int ensity projection (MIP) reformats, 8 mm axial MIP, and 5 mm coronal and sagittal MPR reformats were t hen performed through the thorax. For radiation dose reduction, the following was used: automated exp osure control, adjustment of mA and/or kV according to patient size. COMPARISON: CT chest 02/09/2019, CT abdomen pelvis 01/22/2023. FINDINGS: Image quality: Excellent. Large vessels: No filling defect within the opacified pulmonary arteries. No evidence of acute aortic syndrome. No thoracic aortic aneurysm. Lungs and pleura: No pleural effusions. No pneumothorax. Platelike consolidative opacity is present in the right base. Mediastinum: Heart size is enlarged. No pericardial effusions. No mediastinal adenopathy by size crit eria. Chest wall and lower neck: Thyroid is unremarkable. No axillary or supraclavicular adenopathy by size . Bones: No aggressive osseous abnormality. Upper Abdomen: Simple hepatic cysts are partially visualized. IMPRESSION: Platelike right basilar opacification suggestive of atelectasis. No pulmonary embolism. Reviewed by: Brittanie Steiner MD on 01/22/2023 9:35 AM PDT Approved by: Brittanie Steiner MD on 01/22/2023 9:35 AM PDT Station ID: [id number]
[2023-01-22 09:53] LABS: B. PARAPERTUSSIS- RESP PCR PAN NOT DETECTED; B. PERTUSSIS- RESP PCR PANEL NOT DETECTED; C. PNEUMONIAE- RESP PCR PANEL NOT DETECTED; CORONAVIRUS 229E-RESP PCR NOT DETECTED; CORONAVIRUS HKU1-RESP PCR NOT DETECTED; CORONAVIRUS NL63-RESP PCR NOT DETECTED; CORONAVIRUS OC43-RESP PCR NOT DETECTED; HUMAN METAPNEUMOVIRUS NOT DETECTED; INFLUENZA A- RESP PCR PANEL NOT DETECTED; INFLUENZA B - RESP PCR PANEL NOT DETECTED; M. PNEUMONIAE- RESP PCR PANEL NOT DETECTED; PARAINFLUENZA VIRUS 1 NOT DETECTED; PARAINFLUENZA VIRUS 2 NOT DETECTED; PARAINFLUENZA VIRUS 3 NOT DETECTED; PARAINFLUENZA VIRUS 4 NOT DETECTED; RHINOVIRUS/ENTEROVIRUS NOT DETECTED; RSV- RESP PCR PANEL NOT DETECTED; SARS-CoV-2 -RESP PCR PANEL NOT DETECTED
[2023-01-22 11:35] VITALS: BP 133/69
[2023-01-22] MEDS ORDERED: PHENAZOPYRIDINE 100 MG TABLET PO STA (12:09)
[2023-01-22] MEDS ORDERED: ACETAMINOPHEN 325 MG TABLET PO STA (12:09)
[2023-01-22] MEDS ORDERED: KETOROLAC 15 MG/ML VIAL IVP STA (12:10)
--- NOTE | 2023-01-22 12:14 | ED Physician Documentation ---
ED Addendum - Addendum Addendum: 01/22/23 12:10 The patient was trans for care over to me at change of shift. He was pending results of CT of the chest and abdomen that had just been performed. He was reasonably comfortable. He was given Rocephin 1 g IV for urinary tract infection. It took about 2 and half hours [address] the CT report to come back. It showed thickening of the bladder wall and some adjacent colon consistent with UTI. The thought was not a separate colitis but more reactive inflammation. No other acute abnormalities. The chest component did not show any acute abnormalities. There was some platelike atelectasis in the right lower lobe that has been present on previous imaging. The patient had been dyspneic and hypoxic initially but have been doing okay on nasal cannula. We turned the oxygen off and he remained 93 to 95% on room air. He had a little bit of expiratory wheezing. He describes some dyspnea on exertion progressively over the last several months. Prior history of smoking years ago. No prior diagnosis of COPD or asthma. Blood test did not show any signs of heart failure or enlarged heart. The CT did not show any blood clots or aneurysms. At this point I would presume his dyspnea is related to some underlying lung disease that had not been previously diagnosed. We can start him on inhalers to use 4 times daily and see if that helps with his breathing. Otherwise follow-up with his primary care for more consistent treatment of presumed COPD. At this point he seems comfortable except for a little bladder spasming. A bladder scanner was done and only showed 118 mL postvoid residual. I do not feel he needs a catheter. We can discharge him to home. His is here and can take him home. I will prescribe cephalexin as well as Pyridium and a Combivent inhaler. Otherwise he can use Tylenol if needed for pains and to continue his other usual medicines. Disposition: The patient discharged home in stable condition. Diagnoses: 1. Lower abdominal pain 2. Acute cystitis 3. Dyspnea 4. Presumed COPD new diagnosis 5. History of Lewy body dementia
== END 2023-01-22 13:05 | disposition home or self-care (01) ==
LOC: EDUNIT# → ED 05:41
DX: N30.00 Acute cystitis without hematuria (principal); R10.30 Lower abdominal pain, unspecified; I10 Essential (primary) hypertension; Z79.82 Long term (current) use of aspirin; Z79.899 Other long term (current) drug therapy; Z20.822 Contact with and (suspected) exposure to COVID-19
CPT/HCPCS: 36415; 71045; 71275; 74177; 80053; 81001; 83690; 83880; 84484; 85025; 87086; 87181; 87633; 93005; 94640; 96365; 96375; 99284; 99285; A9270; Q9967; 81003

== ENCOUNTER 2023-02-02 09:37 | Outpatient (CLI) | payer MEDICARE, BC | END 2023-02-02 09:38 | disposition critical access hospital (66) | LOC: EMS 09:37 | DX: R07.81 Pleurodynia (principal); S20.411A Abrasion of right back wall of thorax, initial encounter; W18.2XXA Fall in (into) shower or empty bathtub, initial encounter; Y92.002 Bathroom of unspecified non-institutional (private) residence as the place of occurrence of the external cause | CPT/HCPCS: A0425; A0427 ==

== ENCOUNTER 2023-02-02 10:02 | Emergency (ER) | payer MEDICARE, BC ==
[2023-02-02] MEDS ORDERED: HYDROmorphone 1 MG/ML CARPUJECT IVP STA (10:15)
--- NOTE | 2023-02-02 10:19 | ED Physician Documentation ---
History of Present Illness - Stated complaint Stated Complaint: GLF - History obtained from History obtained from: Patient, EMS - Additonal information Additional information: The patient comes to the emergency department chief complaint of rib pain after falling in the shower. He states he was transferring to the shower when he lost his balance and fell against the side of the shower, hitting his right ribs. He thinks he probably hit his head too, though he does not remember this specifically. He denies head or neck pain. He is having right posterior rib pain and it hurts to take a deep breath. He has a history of rib fractures on the side before. He the patient denies any other injuries. He is not hurting anywhere else. He did not try to get up because it hurt too much. No other complaints at this time. PD PAST MEDICAL HISTORY - Past Medical History Cardiovascular: Hypertension Respiratory: None Neuro: None Endocrine/Autoimmune: None GI: None : None HEENT: Chronic vision loss Psych: None Musculoskeletal: Osteoarthritis, Chronic back pain, Gout Derm: None - Past Surgical History Past Surgical History: Yes General: Appendectomy, Other HEENT: Cataracts - Present Medications Home Medications: Ambulatory Orders Medication Instructions Recorded Confirmed Aspirin [Aspir 81] 81 mg PO DAILY 09/24/15 02/02/23 Sertraline HCl [Zoloft] 50 mg PO DAILY 09/24/15 02/02/23 Atorvastatin [Lipitor] 10 mg PO DAILY 05/28/17 02/02/23 Calcium Carbonate/Vitamin D3 1 each PO DAILY 04/27/19 02/02/23 [Calcium 600 + Vit D 400 Tablet] Cyanocobalamin (Vitamin B-12) 1,000 mcg PO DAILY 04/27/19 02/02/23 [Vitamin B-12] Multivit-Min/FA/Lycopen/Lutein 1 each PO DAILY 04/27/19 02/02/23 [Centrum Silver Men Tablet] Tamsulosin HCl [Flomax] 0.4 mg PO DAILY 04/27/19 02/02/23 Donepezil HCl 10 mg PO DAILY 09/07/19 02/02/23 Ipratropium/Albuterol [Combivent 4 gm IH QID #4 gm 01/22/23 02/02/23 Respimat] - Allergies Allergies/Adverse Reactions: Allergies Allergy/AdvReac Type Severity Reaction Status Date / Time shellfish derived Allergy Nausea Verified 02/02/23 10:41 - Social History Does the pt smoke?: No Smoking Status: Never smoker Does the pt drink ETOH?: No Does the pt have substance abuse?: No - Immunizations Immunizations are current?: Yes - POLST Patient has POLST: No PD ED PE NORMAL - Vitals Vital signs reviewed: Yes - General General: Alert and oriented X 3, Well developed/nourished, Other (No distress, but patient does appear quite uncomfortable) - HEENT HEENT: Atraumatic, PERRL, EOMI, Moist mucous membranes - Neck Neck: Supple, no meningeal sign, No bony TTP - Cardiac Cardiac: RRR, No murmur, Strong equal pulses - Respiratory Respiratory: No respiratory distress, Clear bilaterally - Abdomen Abdomen: Soft, Non tender, Non distended - Derm Derm: Normal color, Warm and dry, No rash, Other (The patient has a linear contusion and mild abrasion across his right inferior rib cage around the ribs 8 and 9 area. There is some mobility and cracking with palpation. No flail chest.) - Extremities Extremities: No deformity - Neuro Neuro: Alert and oriented X 3, Other (Other than some memory lapse with regard to the incident grossly intact Neurologic exam) - Psych Psych: Normal mood, Normal affect Results - Vitals Vitals: Oxygen O2 Source Room air Oxygen Flow Rate 2 - Labs Labs: Laboratory Tests 02/02/23 02/02/23 02/02/23 13:08 13:08 14:50 WBC 17.6 H RBC 3.80 L Hgb 12.4 L Hct 38.2 L MCV 100.5 H MCH 32.6 H MCHC 32.5 RDW 13.2 Plt Count 222 MPV 9.5 Neut # (Auto) 14.7 H Lymph # (Auto) 2.1 Duchesne # (Auto) 0.7 Eos # (Auto) 0.0 Baso # (Auto) 0.0 Absolute Nucleated RBC 0.00 Nucleated RBC % 0.0 Sodium 140 Potassium 3.9 Chloride 106 Carbon Dioxide 29 Anion Gap 5.0 L BUN 23 H Creatinine 0.9 Estimated GFR (MDRD) 80 L Glucose 102 H Calcium 8.9 Total Bilirubin 0.9 AST 23 ALT 25 Alkaline Phosphatase 65 Total Protein 6.6 L Albumin 3.7 Globulin 2.9 Albumin/Globulin Ratio 1.3 Lipase 43 Nasal Adenovirus (PCR) NOT DETECTED Nasal B. parapertussis DNA (PCR) NOT DETECTED Nasal Coronavir 229E PCR NOT DETECTED Nasal Coronavir HKU1 PCR NOT DETECTED Nasal Coronavir NL63 PCR NOT DETECTED Nasal Coronavir OC43 PCR NOT DETECTED Nasal Enterovir/Rhinovir PCR NOT DETECTED Nasal Influenza B PCR NOT DETECTED Nasal Influenza A PCR NOT DETECTED Nasal Parainfluen 1 PCR NOT DETECTED Nasal Parainfluen 2 PCR NOT DETECTED Nasal Parainfluen 3 PCR NOT DETECTED Nasal Parainfluen 4 PCR NOT DETECTED Nasal RSV (PCR) NOT DETECTED Nasal B.pertussis DNA PCR NOT DETECTED Nasal C.pneumoniae (PCR) NOT DETECTED Kishore Human Metapneumo PCR NOT DETECTED Nasal M.pneumoniae (PCR) NOT DETECTED Nasal SARS-CoV-2 (PCR) NOT DETECTED - Rads (name of study) CT head Relevant Findings:: Final report received, See rad report (neg) CT c-spine Relevant Findings:: Final report received, See rad report (neg) ribs/chest XR Relevant Findings:: Final report received, See rad report CT chest Relevant Findings:: Final report received, See rad report (5 contiguous ribs fractured (7-11), with some with multiple fractures.) PD Medical Decision Making - ED course Complexity details: reviewed results, re-evaluated patient, considered differential, d/w patient ED course: The patient was treated symptomatically with IV Dilaudid and sent for x-rays of his right rib cage and chest, as well as CT's of the head and neck. The CT's were negative. He was found to have at least 2 rib fx on XR, but could not take a deep breath, so imaging was suboptimal. He was sent for CT chest, which showed 5 contiguous rib fractures, some ribs with more than 1 fracture. The pt's pain control was difficult, given that his BP was very sensitive to Dilaudid, and would easily drop. I felt he would be better off going to a trauma center, and I spoke with [facility] about this. Dr. Benedict in their ED did accept the pt in transfer. Departure - Departure Disposition: 02 Transfer Acute Care Hosp Clinical Impression: Multiple rib fractures Qualifiers: Encounter type: initial encounter Fracture type: closed Laterality: right Qualified Code(s): S22.41XA - Multiple fractures of ribs, right side, initial encounter for closed fracture Condition: Serious Discharge Date/Time: 02/02/23 16:00
--- NOTE | 2023-02-02 10:50 | XRAY Report ---
PROCEDURE: Ribs w/PA Chest RT INDICATIONS: fall/R post. rib pain 7-9 TECHNIQUE: 4 views of the right ribs were acquired, along with a single view chest. COMPARISON: None. FINDINGS: Surgical changes and devices: None. Bones and chest wall: Fractures of the lateral right seventh, eighth, ninth ribs. No suspicious bony lesions. Overlying soft tissues appear unremarkable. Lungs and pleura: No pleural effusions or pneumothorax. Submaximal expansion with bibasilar atelecta sis. Mediastinum: Mediastinal contours appear normal. Heart size is normal. IMPRESSION: There are 3 contiguous rib fractures involving the right seventh, eighth, ninth ribs. 2. No pneumothorax. 3. Patchy bibasilar atelectasis. Reviewed by: Joe Ramos MD on 02/02/2023 10:49 AM PDT Approved by: Joe Ramos MD on 02/02/2023 10:49 AM PDT Station ID: [id number]
[2023-02-02] MEDS ORDERED: ONDANSETRON 4 MG/2 ML VIAL IVP STA (10:52)
--- NOTE | 2023-02-02 11:31 | CT Report ---
PROCEDURE: HEAD WO INDICATIONS: fall/hit head TECHNIQUE: Noncontrast 4.5 mm thick angled axial sections acquired from the foramen magnum to the vertex. For r adiation dose reduction, the following was used: automated exposure control, adjustment of mA and/or kV according to patient size. COMPARISON: None. FINDINGS: Image quality: Excellent. CSF spaces: Basal cisterns are patent. No extra-axial fluid collections. Ventricles are normal in size and shape. Brain: No midline shift. No intracranial masses or hemorrhage. Alcocer-white matter interface is norm al. Skull and face: Calvarium and visualized facial bones are intact, without suspicious lesions. Small posterior right scalp contusion, without underlying fracture. Sinuses: Visualized sinuses and mastoids are clear. IMPRESSION: No acute intracranial pathology Small posterior scalp contusion, without underlying fracture. Reviewed by: Rafael Chávez on 02/02/2023 11:29 AM PDT Approved by: Rafael Chávez on 02/02/2023 11:29 AM PDT Station ID: [id number]
--- NOTE | 2023-02-02 11:38 | CT Report ---
PROCEDURE: CHEST WO INDICATIONS: fall/right rib fx seen on XR. TECHNIQUE: Noncontrast 1mm axial images were acquired from the pulmonary apices to the posterior costophrenic an gles. Axial 5 mm soft tissue kernel reconstructions were performed as well as 8 mm axial MIP and cor onal and sagittal 5 mm reformations. For radiation dose reduction, the following was used: automate d exposure control, adjustment of mA and/or kV according to patient size. COMPARISON: None. FINDINGS: Image quality: Excellent. Lungs and pleura: No pleural effusions. No pneumothorax. A couple of small pulmonary nodules, measur ing no greater than 3 mm. Atelectasis of the right lower lobe. No contusion. Mediastinum: Heart size is normal. No pericardial effusions. No mediastinal adenopathy by size criter ia. No large vessel abnormality. 2 vessel coronary disease. Chest wall and lower neck: Thyroid is unremarkable. No axillary or supraclavicular adenopathy by size . Bones: Displaced fractures of the right posterior 11th, 10th, ninth (in 2 places), eighth (in 2 place s) and seventh ribs. Healing left-sided rib fractures. Upper Abdomen: Fluid attenuating renal cysts and hepatic cysts. Benign left adrenal adenoma measuring 2.7 cm by Hounsfield unit criteria (-4). IMPRESSION: Displaced fractures of the right posterior seventh through 11th ribs. The eighth and ninth ribs are b roken in 2 places. No pneumothorax. A few small pulmonary nodules, measuring no greater than 3 mm. Consider 12 month follow-up if this pa tient is at high risk for developing lung cancer, per Fleischner Society guidelines. Reviewed by: Rafael Chávez on 02/02/2023 11:37 AM PDT Approved by: Rafael Chávez on 02/02/2023 11:37 AM PDT Station ID: [id number]
[2023-02-02 13:13] LABS: BASOPHILS % (AUTO) 0.2 %; EOSINOPHILS % (AUTO) 0.1 %; HCT - HEMATOCRIT 38.2 % (42.0-52.0); HGB - HEMOGLOBIN 12.4 g/dL (14.0-18.0); LYMPHOCYTES # (AUTO) 2.1 10^3/uL (1.5-3.5); LYMPHOCYTES % (AUTO) 12.1 %; MEAN CORPUSCULAR HEMOGLOBIN 32.6 pg (27.0-31.0); MEAN CORPUSCULAR HGB CONC 32.5 g/dL (32.0-36.0); MEAN CORPUSCULAR VOLUME 100.5 fL (80.0-94.0); MEAN PLATELET VOLUME 9.5 fL (7.4-11.4); MONOCYTES # (AUTO) 0.7 10^3/uL (0.0-1.0); NEUTROPHILS # (AUTO) 14.7 10^3/uL (1.5-6.6); NEUTROPHILS % (AUTO) 83.2 %; PLT - PLATELET COUNT 222 10^3/uL (130-450); RED CELL DISTRIBUTION WIDTH 13.2 % (12.0-15.0); WHITE BLOOD COUNT 17.6 x10^3/uL (4.8-10.8)
[2023-02-02 13:27] LABS: ALBUMIN 3.7 g/dL (3.2-5.5); ALBUMIN/GLOBULIN RATIO 1.3 (1.0-2.2); BILIRUBIN,TOTAL 0.9 mg/dL (0.2-1.0); CALCIUM 8.9 mg/dL (8.5-10.3); CREATININE 0.9 mg/dL (0.6-1.2); POTASSIUM 3.9 mmol/L (3.5-5.0); TOTAL PROTEIN 6.6 g/dL (6.7-8.2)
[2023-02-02] MEDS ORDERED: SODIUM CHLORIDE 0.9% 1,000 ML IV STA (14:10)
[2023-02-02 14:22] VITALS: BP 93/62
[2023-02-02] MEDS ORDERED: oxyCODONE 5 MG TABLET PO STA (14:32)
[2023-02-02 15:49] LABS: CORONAVIRUS 229E-RESP PCR NOT DETECTED; CORONAVIRUS HKU1-RESP PCR NOT DETECTED; CORONAVIRUS NL63-RESP PCR NOT DETECTED; CORONAVIRUS OC43-RESP PCR NOT DETECTED; SARS-CoV-2 -RESP PCR PANEL NOT DETECTED
[2023-02-02 15:50] LABS: B. PARAPERTUSSIS- RESP PCR PAN NOT DETECTED; B. PERTUSSIS- RESP PCR PANEL NOT DETECTED; C. PNEUMONIAE- RESP PCR PANEL NOT DETECTED; HUMAN METAPNEUMOVIRUS NOT DETECTED; INFLUENZA A- RESP PCR PANEL NOT DETECTED; INFLUENZA B - RESP PCR PANEL NOT DETECTED; M. PNEUMONIAE- RESP PCR PANEL NOT DETECTED; PARAINFLUENZA VIRUS 1 NOT DETECTED; PARAINFLUENZA VIRUS 2 NOT DETECTED; PARAINFLUENZA VIRUS 3 NOT DETECTED; PARAINFLUENZA VIRUS 4 NOT DETECTED; RHINOVIRUS/ENTEROVIRUS NOT DETECTED; RSV- RESP PCR PANEL NOT DETECTED
--- NOTE | 2023-02-02 15:57 | CT Report ---
PROCEDURE: CERVICAL SPINE WO INDICATIONS: fall/trauma TECHNIQUE: Noncontrast 3 mm thick sections acquired from the skull base to the T4 level. Sagittal and coronal r eformats were then constructed. For radiation dose reduction, the following was used: automated exp osure control, adjustment of mA and/or kV according to patient size. COMPARISON: 02/09/2019. FINDINGS: Image quality: Excellent. Bones: No fractures or dislocations. Visualized superior ribs are intact. Unchanged benign-appeari ng cystic change in the posterior dens with chronic loss of the posterior cortex. Multilevel cervical spondylitic change with multilevel bony foraminal narrowing. Multilevel facet arthropathy. Canal xenia nosis at C6-C7. Soft tissues: Prevertebral soft tissues are normal in thickness. No paravertebral hematomas. No ap ical pneumothoraces. IMPRESSION: 1. No acute cervical fracture or dislocation. 2. Unchanged benign cystic change in the base of the dens, with chronic loss of posterior cortex of t he dens. 3. Cervical spondylitic change. Reviewed by: Joe Ramos MD on 02/02/2023 3:55 PM PDT Approved by: Joe Ramos MD on 02/02/2023 3:55 PM PDT Station ID: [id number]
== END 2023-02-02 16:00 | disposition short-term general hospital (02) ==
LOC: EDUNIT# → ED 10:02
DX: S22.41XA Multiple fractures of ribs, right side, initial encounter for closed fracture (principal); W18.39XA Other fall on same level, initial encounter; Y93.E1 Activity, personal bathing and showering; Y92.002 Bathroom of unspecified non-institutional (private) residence as the place of occurrence of the external cause; Z20.822 Contact with and (suspected) exposure to COVID-19; I10 Essential (primary) hypertension
CPT/HCPCS: 36415; 70450; 71101; 71250; 72125; 80053; 83690; 85025; 87633; 96374; 96375; 99285; A9270; J1170